=== PATIENT | female | born 1985 | race Caucasian/White ===

== ENCOUNTER → 2017-01-05 | Outpatient (CLI) | payer BC ==
[~2017-01-05] MED LIST: PRENTAB26 PO
[2017-01-05 16:49] LABS: URINE APPEARANCE CLEAR (CLEAR); URINE BILIRUBIN NEG (NEG); URINE COLOR YELLOW; URINE NITRITE NEG (NEG); URINE SPECIFIC GRAVITY 1.011 (1.000-1.030); UROBILINOGEN NEG (NEG)
[2017-01-05 16:51] LABS: MANUAL MICROSCOPIC REQUIRED? NO; REVIEW REQ? NO
== END | disposition home or self-care (01) ==
LOC: C.LABSPEC 16:22
PROVIDERS: ATTEND Obstetrics & Gynecology
DX: Z34.91 Encounter for supervision of normal pregnancy, unspecified, first trimester (principal)

== ENCOUNTER → 2017-02-27 | Outpatient (CLI) | payer BC ==
[2017-02-27 10:31] LABS: GTGD 50 Grams
== END | disposition home or self-care (01) ==
LOC: C.LAB1850 09:01
PROVIDERS: ATTEND Obstetrics & Gynecology
DX: Z34.92 Encounter for supervision of normal pregnancy, unspecified, second trimester (principal); Z3A.00 Weeks of gestation of pregnancy not specified

== ENCOUNTER → 2017-03-10 | Outpatient (CLI) | payer BC | END | disposition home or self-care (01) | LOC: C.LAB1850 08:18 | PROVIDERS: ATTEND Podiatrist Foot & Ankle Surgery | DX: Z34.92 Encounter for supervision of normal pregnancy, unspecified, second trimester (principal) ==

== ENCOUNTER → 2017-05-16 | Outpatient (CLI) | payer BC ==
[2017-05-16 09:43] LABS: HEMATOCRIT 35.8 % (37-47); HEMOGLOBIN 12.3 g/dL (12.0-16.0)
== END | disposition home or self-care (01) ==
LOC: C.LAB 07:07
PROVIDERS: ATTEND Obstetrics & Gynecology
DX: Z34.92 Encounter for supervision of normal pregnancy, unspecified, second trimester (principal)

== ENCOUNTER → 2017-06-10 | Outpatient (CLI) | payer BC | END | disposition home or self-care (01) | LOC: C.LABSPEC 16:34 | PROVIDERS: ATTEND Obstetrics & Gynecology | DX: N39.0 Urinary tract infection, site not specified (principal) ==

== ENCOUNTER → 2017-07-23 | Outpatient (CLI) | payer BC | END | disposition home or self-care (01) | LOC: C.LABSPEC 18:41 | PROVIDERS: ATTEND Obstetrics & Gynecology | DX: Z34.93 Encounter for supervision of normal pregnancy, unspecified, third trimester (principal); Z3A.00 Weeks of gestation of pregnancy not specified ==

== ENCOUNTER → 2017-10-12 | Outpatient (CLI) | payer BC | END | disposition home or self-care (01) | LOC: C.LAB1850 15:37 | PROVIDERS: ATTEND Obstetrics & Gynecology | DX: Z32.01 Encounter for pregnancy test, result positive (principal) ==

== ENCOUNTER 2021-05-21 13:17 | Inpatient (IN) ==
--- NOTE | 2021-05-21 14:11 | Emergency Department Note ---
Impression & Plan Cholelithiasis, Common bile duct dilatation, Elevated liver enzymes ED Provider Note CHIEF COMPLAINT: Upper abdominal pain, nausea and vomiting HISTORY OF PRESENTING ILLNESS: This is a 35-year-old female who presents to the emergency department by private vehicle with complaint of upper abdominal pain that started 2 days ago. She states that she ate dinner and shortly after she developed severe upper abdominal pain and vomiting. She states that she did not eat much yesterday because she felt nauseated all day, but when she tried to eat dinner last night the same thing happened and her pain got worse. She is having persistent epigastric and right upper quadrant pain that she describes as squeezing and pressure, radiates into her upper back, has been constant, and she currently rates the pain 7/10. She did not try any medications for her symptoms. She has had persistent nausea but has not had any further vomiting today. She denies any diarrhea, but notes that her stool was light-colored. She denies any urinary symptoms. She notes that she is currently on her menses and denies any concerns for . She denies chest pain, chest tightness, shortness of breath, palpitations, dizziness or syncope. She denies fevers or chills. She reports a history of appendectomy and denies any other abdominal surgeries. REVIEW OF SYSTEMS: A complete 10 point review of systems was reviewed with the patient with pertinent positives and negatives as per history of present ill ness. All else were negative. PAST MEDICAL HISTORY: Migraines, history of appendectomy and wisdom tooth extraction SOCIAL HISTORY: Lives at home with family, she denies tobacco use ALLERGIES: No known allergies PHYSICAL EXAM: CONSTITUTIONAL: Pleasant and cooperative. Nontoxic-appearing and in no acute distress. Mildly dehydrated, but otherwise well appearing and well nourished. HEENT: Normocephalic, atraumatic. Pharynx normal. Tacky mucous membranes. NECK: Supple, full active range of motion without discomfort. RESPIRATORY: Clear to auscultation bilaterally with no wheezing, crackles, rhonchi or stridor. Equal expansion bilaterally. CARDIOVASCULAR: Regular rate and rhythm with no murmurs, rubs or gallops. Normal peripheral perfusion. No edema. GASTROINTESTINAL: Tender to palpation in the epigastric and right upper quadrant abdomen with slight guarding in the right upper quadrant, no rebound tenderness. Abdomen is otherwise nontender, soft and nondistended. Obese abdomen. No palpable masses or HSM. Bowel sounds present in all quadrants. No CVA tenderness bilaterally. MUSCULOSKELETAL: Full range of motion of all joints without discomfort. INTEGUMENTARY: No rash or other significant dermatologic conditions noted. NEUROLOGIC: Alert and oriented X 4 with normal affect. Normal strength and sensation in all 4 extremities. Normal speech. Normal gait observed. ED COURSE AND MEDICAL DECISION MAKING: CC: Patient presenting with complaint of abdominal pain, nausea and vomiting DIFFERENTIAL DIAGNOSIS: Includes, but not limited to cholecystitis, cholelithiasis, pancreatitis, choledocholithiasis, gastritis, peptic ulcer disease, GERD, gastroenteritis, foodborne illness, among others. INTERPRETATION OF LABS: No leukocytosis, no anemia, normal platelets, no significant electrolyte abnormalities, normal renal function, significantly elevated T bili and liver enzymes with a normal lipase. Serum negative. UA negative for infection. MEDICATION RECONCILIATION: I attest that I have personally reviewed the patient's current medication list. INITIAL VITAL SIGNS REVIEW: I reviewed the patient's initial vital signs and interpret them as follows: T: Afebrile; BP: Hypertensive; HR: Within normal limits; RR: Within normal limits; Pulse Ox: Within normal limits on room air. MDM SUMMARY: Patient was initially evaluated in triage room 3 due to periods of high volume and long wait times. A history and physical exam was performed. Patient is alert and oriented, in no acute distress, resting calmly in the chair. She is tender to palpation in the epigastric and right upper quadrant on my exam, no acute abdomen. Initial orders were placed for labs, UA and urine , and right upper quadrant ultrasound to evaluate for gallbladder disease. Patient discussed with Dr. Harris, who agrees with my assessment, plan, and disposition. Labs and imaging reviewed, labs notable for significantly elevated liver enzymes and T bili, but a normal lipase. No leukocytosis. Ultrasound showed dilated gallbladder with multiple small gallstones, distended CBD up to 8 mm and positive sonographic Walton sign. There was no gallbladder wall thickening noted. I spoke on the phone with KORTNEY Perdomo with general surgery, who recommended admitting the patient to the hospitalist service and have her seen by GI to address the concern for biliary obstruction and they will most likely be involved after that for suspected surgery. She did request that we cover the patient with IV Zosyn prophylactically. I spoke on the phone with CRISTOFER Eastman with GI, who requested that we order an MRCP and they are happy to be involved with the patient as well. The patient will be kept n.p.o. after midnight for probable ERCP tomorrow. [facility] the patient for [facility]. A Covid test was ordered. Patient reassessed multiple times throughout ED stay, she has remained hemodynamically stable and afebrile and notes that her pain is improved with the morphine. The patient was updated on all results and plan for admission for evaluation by GI and surgery, all questions were answered to the best my ability and the patient was agreeable to this plan. The patient was stable at the time of admission. The chart was completed utilizing [employer] Speech voice recognition software. Grammatical errors, random word insertions, pronoun errors, and incomplete sentences are an occasional consequence of this system due to software limitations, ambient noise, and hardware issues. Any formal questions or concerns about the content, text, or information contained within the body of this dictation should be directly addressed to the nurse practitioner for cl arification. Past Med/Surg History Medical History Choledocholithiasis Common bile duct dilatation Elevated liver enzymes Migraine Morbid obesity with BMI of 40.0-44.9, adult Varicella Surgical History H/O oral surgery History of appendectomy S/P wisdom tooth extraction Family History Grandfather (Maternal) Congenital hip deformity Uncle Congenital hip deformity uncle Grandmother (Maternal) Breast cancer Father Hypertension Denies family history of Ovarian cancer Prostate cancer Myocardial infarction Colorectal cancer Social History (Updated 05/21/21 @ 18:24 by Lyle Mascorro) Smoking Status: Never smoker Second Hand Exposure: No; Hx Alcohol Use: No Hx Substance Use: No Preferred Language: Montserratian Communication Ability: Effective Visual Impairment: No Limitations Hearing Ability: Normal Frame Cleaner Required: No Beliefs That Will Affect Care: None marital status: Current Living Situation: Family 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 Other Information That Helps Us Care for You: No Feels Safe at Home: Yes Safety Concerns: Feels Safe At This Time Childhood Exposure to Second-Hand Smoke: No Dental Care, Regularly: No Physical Activity Frequency: 5-6 Times per Week Seatbelt Use: always Sunscreen Use: Yes Assistive Devices: None Allergies Allergies Allergy/AdvReac Type Severity Reaction Status Date / Time No Known Allergies Allergy Verified 05/21/21 15:41 Home Meds Home Medications Medication Instructions Recorded Confirmed multivitamin 1 tab PO DAILY 12/08/19 05/21/21 Previous Rx's Medication Instructions Recorded norgestimate 0.25 mg-ethinyl 1 tab PO DAILY #84 tab 03/14/21 estradiol 35 mcg tablet (Sprintec (28)) Results & Data (ED) Vital Signs Vital Signs - 24 hr 05/21/21 13:21 05/21/21 14:29 Temperature 37.0 C Temperature Source Oral Pulse Rate 69 Pulse Rate [Right Finger] 53 L Respiratory Rate 16 20 Blood Pressure 167/107 H Blood Pressure [Right Arm] 158/108 H Blood Pressure Mean 127 Blood Pressure Mean [Right Arm] 124 Pulse Oximetry 100 99 Oxygen Delivery Method Room Air Sepsis Recent Fever Within 48 Hours No Sepsis New/Unexplained Change in Mental Status N/A Sepsis Action Taken by Nursing No Action Required Laboratory Data Result diagrams: 05/23/21 05:29 05/23/21 05:29 Lab Results 05/21/21 05/21/21 05/21/21 Range/Units 14:10 14:10 14:10 WBC 5.35 (4.8-10.8) K/uL RBC 4.84 (4.2-5.4) M/uL Hgb 14.2 (12.0-16.0) g/dL Hct 42.0 (37-47) % MCV 86.8 (80-100) fL MCH 29.3 (25-34) pg MCHC 33.8 (32-36) g/dL RDW Std Deviation 43.3 (36.4-46.3) fL RDW Coeff of Tank 13.5 (11.5-14.5) % Plt Count 236 (130-400) K/uL MPV 11.7 H (7.4-10.4) fL Immature Gran % (Auto) 0.2 % Neut % (Auto) 70.4 % Lymph % (Auto) 20.0 % Lincoln % (Auto) 7.7 % Eos % (Auto) 1.3 % Baso % (Auto) 0.4 % Neut # (Auto) 3.77 (1.4-6.5) K/uL Lymph # (Auto) 1.07 L (1.2-3.4) K/uL Lincoln # (Auto) 0.41 (0.11-0.59) K/uL Eos # (Auto) 0.07 (0-0.5) K/uL Baso # (Auto) 0.02 (0-0.2) K/uL Immature Gran # (Auto) 0.01 (0.00-0.02) K/uL Sodium 140 (136-145) mmol/L Potassium 3.7 (3.5-5.1) mmol/L Chloride 106 (98-107) mmol/L Carbon Dioxide 26 (21-32) mmol/L Anion Gap 8 (3-11) BUN 7 (6-23) mg/dl Creatinine 0.59 L (0.6-1.2) mg/dl Est Cr Clr Drug Dosing 185.2 ml/min Est GFR ( Amer) 137.6 ml/min Est GFR (Non-Af Amer) 118.7 ml/min BUN/Creatinine Ratio 11.9 (10-20) Glucose 118 H (70-99(Fasting)) mg/dl Calcium 9.5 (8.5-10.1) mg/dl Total Bilirubin 3.4 H (0.2-1.0) mg/dl AST 533 H (13-39) U/L ALT 601 H (7-52) U/L Alkaline Phosphatase 181 H (34-104) U/L Total Protein 7.1 (6.0-8.3) gm/dl Albumin 4.4 (3.4-5.0) gm/dl Globulin 2.7 (2.5-4.0) gm/dl Albumin/Globulin Ratio 1.6 (0.9-2) Lipase 23 (11-82) U/L HCG, Qual Negative (Negative) Urine Color Urine Appearance (Clear) Urine pH (4.5-7.5) Ur Specific [place] (1.000-1.030) Urine Protein (Negative) Urine Glucose (UA) (Negative) Urine Ketones (Negative) Urine Blood (Negative) Urine Nitrite (Negative) Urine Bilirubin (Negative) Urine Urobilinogen (Negative) Ur Leukocyte Esterase (Negative) Urine WBC (Auto) (0-5) /hpf Urine RBC (Auto) (0-4) /hpf U Hyaline Cast (Auto) (0-5) /lpf U Epithel Cells (Auto) (0-5) /lpf Urine Bacteria (Auto) (Negative) SARS-CoV-2, RNA, NAAT (NEGATIVE) 05/21/21 05/21/21 Range/Units 14:25 17:25 WBC (4.8-10.8) K/uL RBC (4.2-5.4) M/uL Hgb (12.0-16.0) g/dL Hct (37-47) % MCV (80-100) fL MCH (25-34) pg MCHC (32-36) g/dL RDW Std Deviation (36.4-46.3) fL RDW Coeff of Tank (11.5-14.5) % Plt Count (130-400) K/uL MPV (7.4-10.4) fL Immature Gran % (Auto) % Neut % (Auto) % Lymph % (Auto) % Lincoln % (Auto) % Eos % (Auto) % Baso % (Auto) % Neut # (Auto) (1.4-6.5) K/uL Lymph # (Auto) (1.2-3.4) K/uL Lincoln # (Auto) (0.11-0.59) K/uL Eos # (Auto) (0-0.5) K/uL Baso # (Auto) (0-0.2) K/uL Immature Gran # (Auto) (0.00-0.02) K/uL Sodium (136-145) mmol/L Potassium (3.5-5.1) mmol/L Chloride (98-107) mmol/L Carbon Dioxide (21-32) mmol/L Anion Gap (3-11) BUN (6-23) mg/dl Creatinine (0.6-1.2) mg/dl Est Cr Clr Drug Dosing ml/min Est GFR ( Amer) ml/min Est GFR (Non-Af Amer) ml/min BUN/Creatinine Ratio (10-20) Glucose (70-99(Fasting)) mg/dl Calcium (8.5-10.1) mg/dl Total Bilirubin (0.2-1.0) mg/dl AST (13-39) U/L ALT (7-52) U/L Alkaline Phosphatase (34-104) U/L Total Protein (6.0-8.3) gm/dl Albumin (3.4-5.0) gm/dl Globulin (2.5-4.0) gm/dl Albumin/Globulin Ratio (0.9-2) Lipase (11-82) U/L HCG, Qual (Negative) Urine Color Dark Yellow Urine Appearance Clear (Clear) Urine pH 8.0 H (4.5-7.5) Ur Specific [place] 1.012 (1.000-1.030) Urine Protein Negative (Negative) Urine Glucose (UA) Negative (Negative) Urine Ketones Negative (Negative) Urine Blood 2+ H (Negative) Urine Nitrite Negative (Negative) Urine Bilirubin 2+ H (Negative) Urine Urobilinogen Negative (Negative) Ur Leukocyte Esterase Trace H (Negative) Urine WBC (Auto) 1-5 (0-5) /hpf Urine RBC (Auto) 10-30 H (0-4) /hpf U Hyaline Cast (Auto) 0 (0-5) /lpf U Epithel Cells (Auto) 5-10 H (0-5) /lpf Urine Bacteria (Auto) Negative (Negative) SARS-CoV-2, RNA, NAAT NEGATIVE (NEGATIVE) Administered Medications Hydrocodone Bitart/Acetaminophen (Hydrocodone/Acetamophen 5/325mg Tab) 2 tab PO Q4H PRN PRN Reason: Pain Stop: 06/06/21 17:40 Last Admin: 05/23/21 23:28 Dose: 2 tab Documented by: [id number] Admin: 05/23/21 19:31 Dose: 2 tab Documented by: [id number] Famotidine 20 mg/ Syringe 5 mls @ 2.5 mls/min IV BID MINESH Stop: 06/20/21 22:38 Last Admin: 05/23/21 20:27 Dose: 2.5 mls/min Documented by: [id number] Admin: 05/23/21 09:05 Dose: 2.5 mls/min Documented by: [id number] Admin: 05/22/21 20:27 Dose: 2.5 mls/min Documented by: [id number] Admin: 05/22/21 08:02 Dose: 2.5 mls/min Documented by: [id number] Admin: 05/21/21 23:28 Dose: 2.5 mls/min Documented by: [id number] Piperacillin Sod/Tazobactam (Sod 4.5 gm/ Dextrose) 120 mls @ 30 mls/hr IV Q8H MINESH; Protocol Stop: 06/01/21 00:00 Last Admin: 05/23/21 23:28 Dose: 30 mls/hr Documented by: [id number] Infusion: 05/23/21 23:28 Dose: 30 mls/hr Documented by: [id number] Admin: 05/23/21 19:31 Dose: 30 mls/hr Documented by: [id number] Infusion: 05/23/21 13:13 Dose: 0 mls/hr Documented by: [id number] Admin: 05/23/21 09:05 Dose: 30 mls/hr Documented by: [id number] Infusion: 05/23/21 03:42 Dose: 30 mls/hr Documented by: [id number] Admin: 05/22/21 23:29 Dose: 30 mls/hr Documented by: [id number] Infusion: 05/22/21 21:38 Dose: 30 mls/hr Documented by: [id number] Admin: 05/22/21 17:15 Dose: 30 mls/hr Documented by: [id number] Infusion: 05/22/21 12:08 Dose: 0 mls/hr Documented by: [id number] Admin: 05/22/21 08:08 Dose: 30 mls/hr Documented by: [id number] Infusion: 05/22/21 03:32 Dose: 30 mls/hr Documented by: [id number] Admin: 05/21/21 23:28 Dose: 30 mls/hr Documented by: [id number] Lactated Ringer's (Lr) 1,000 mls @ 80 mls/hr IV .[id number] MINESH Stop: 06/22/21 17:40 Last Admin: 05/23/21 18:03 Dose: 80 mls/hr Documented by: [id number] Morphine Sulfate (Morphine Sulfate 4 Mg/Ml 1 Ml Carp\Vial) 4 mg IV Q2H PRN PRN Reason: Pain Stop: 06/06/21 17:40 Last Admin: 05/23/21 17:53 Dose: 4 mg Documented by: [id number] Multivitamins (Multivitamin Tab) 1 tab PO DAILY MINESH Stop: 06/21/21 08:59 Last Admin: 05/23/21 10:36 Dose: Not Given Documented by: [id number] Admin: 05/22/21 07:45 Dose: Not Given Documented by: [id number] Ondansetron HCl (Ondansetron Inj 2 Mg/Ml 2 Ml Vial) 4 mg IV Q6H PRN PRN Reason: Nausea And Vomiting Stop: 06/20/21 22:38 Last Admin: 05/23/21 17:53 Dose: 4 mg Documented by: [id number] Admin: 05/23/21 11:31 Dose: 4 mg Documented by: [id number] Admin: 05/22/21 20:27 Dose: 4 mg Documented by: [id number] Admin: 05/22/21 07:57 Dose: 4 mg Documented by: [id number] Discontinued Medications Bupivacaine HCl (Bupivacaine 0.5 % 5 Mg/1 Ml Mpf 30ml Vial) Confirm Administered Dose 30 ml .ROUTE .STK-MED ONE Stop: 05/23/21 15:10 Last Admin: 05/23/21 16:13 Dose: 30 ml Documented by: [id number] Epinephrine HCl (Epinephrine Inj 1 Mg/Ml Amp) Confirm Administered Dose 1 mg .ROUTE .STK-MED ONE Stop: 05/23/21 15:10 Last Admin: 05/23/21 16:13 Dose: 0.15 mg Documented by: [id number] Fentanyl Citrate (Fentanyl Citrate 100 Mcg/2 Ml Vial) 50 mcg IV Q5M PRN PRN Reason: PACU Use Only-Pain Stop: 05/23/21 23:11 Last Admin: 05/23/21 16:48 Dose: 50 mcg Documented by: [id number] Admin: 05/23/21 16:42 Dose: 50 mcg Documented by: [id number] Sodium Chloride (Nss 1000ml) 1,000 mls @ 999 mls/hr IV .Q1H1M ONE Stop: 05/21/21 15:47 Last Infusion: 05/21/21 16:46 Dose: 0 mls/hr Documented by: [id number] Admin: 05/21/21 15:04 Dose: 999 mls/hr Documented by: [id number] Piperacillin Sod/Tazobactam Sod (Zosyn) 4.5 gm in 120 mls @ 240 mls/hr IV NOW ONE Stop: 05/21/21 16:58 Last Infusion: 05/21/21 18:05 Dose: 0 mls/hr Documented by: [id number] Admin: 05/21/21 16:54 Dose: 240 mls/hr Documented by: [id number] Potassium Chloride/Dextrose/Sod Cl (D5nss + 20meq Kcl) 20 meq in 1,000 mls @ 150 mls/hr IV .Q6H40M [facility]; Protocol Stop: 06/20/21 22:59 Last Admin: 05/23/21 20:18 Dose: Not Given Documented by: [id number] Admin: 05/23/21 20:17 Dose: Not Given Documented by: [id number] Infusion: 05/23/21 18:29 Dose: 0 mls/hr Documented by: [id number] Admin: 05/23/21 08:15 Dose: 150 mls/hr Documented by: [id number] Infusion: 05/23/21 06:10 Dose: 150 mls/hr Documented by: [id number] Admin: 05/22/21 23:29 Dose: 150 mls/hr Documented by: [id number] Infusion: 05/22/21 23:29 Dose: 150 mls/hr Documented by: [id number] Admin: 05/22/21 18:07 Dose: 150 mls/hr Documented by: [id number] Infusion: 05/22/21 18:07 Dose: 150 mls/hr Documented by: [id number] Infusion: 05/22/21 17:09 Dose: 150 mls/hr Documented by: [id number] Infusion: 05/22/21 13:57 Dose: 0 mls/hr Documented by: [id number] Admin: 05/22/21 08:27 Dose: 150 mls/hr Documented by: [id number] Infusion: 05/22/21 06:28 Dose: 150 mls/hr Documented by: [id number] Admin: 05/21/21 23:28 Dose: 150 mls/hr Documented by: [id number] Prochlorperazine 5 mg/ Syringe 5 mls @ 5 mls/min IV ONE ONE Stop: 05/22/21 22:46 Last Admin: 05/22/21 23:29 Dose: 5 mls/min Documented by: [id number] Indomethacin (Indomethacin 50 Mg Supp) Confirm Administered Dose 100 mg ND .STK- MED ONE Stop: 05/22/21 14:54 Last Admin: 05/22/21 17:04 Dose: Not Given Documented by: [id number] Morphine Sulfate (Morphine Sulfate 4 Mg/Ml 1 Ml Carp\Vial) 4 mg IV NOW STA Stop: 05/21/21 14:48 Last Admin: 05/21/21 14:56 Dose: 4 mg Documented by: [id number] Morphine Sulfate (Morphine Sulfate 4 Mg/Ml 1 Ml Carp\Vial) 4 mg IV NOW STA Stop: 05/21/21 16:41 Last Admin: 05/21/21 16:54 Dose: 4 mg Documented by: [id number] Morphine Sulfate (Morphine Sulfate 2 Mg/Ml Carp) 2 mg IV Q3H PRN PRN Reason: Pain Stop: 06/04/21 22:38 Last Admin: 05/23/21 10:28 Dose: 2 mg Documented by: [id number] Admin: 05/22/21 22:12 Dose: 2 mg Documented by: [id number] Admin: 05/22/21 10:58 Dose: 2 mg Documented by: [id number] Ondansetron HCl (Ondansetron Inj 2 Mg/Ml 2 Ml Vial) 4 mg IV NOW STA Stop: 05/21/21 14:48 Last Admin: 05/21/21 14:56 Dose: 4 mg Documented by: [id number] Imaging Data Radiologist's Impression: Gallbladder Ultrasound 05/21/21 13:58 ABDOMINAL ULTRASOUND, RIGHT UPPER QUADRANT HISTORY: epigastric and RUQ pain, n/v, after eating. COMPARISON: Chest CTA 02/09/2019. FINDINGS: Pancreas: The pancreatic tail is obscured by overlying bowel gas. The remaining portions of the pancreas are within normal limits. Liver: No hepatic masses. There is mild intrahepatic bile duct dilatation. Gallbladder: Multiple small stones seen within the gallbladder. The gallbladder is mildly distended. No gallbladder wall thickening or pericholecystic fluid. Possible sonographic Walton's sign. CBD: The common bile duct is distended measuring up to 8 mm. Right kidney: No hydronephrosis. IMPRESSION: 1. Distended gallbladder containing multiple small stones. No gallbladder wall thickening. However, there is a possible sonographic Walton sign. Therefore, clinical correlation recommended to assess for acute cholecystitis. 2. Mild intra and extrahepatic bile duct dilatation. ACT 112: Negative or not required by law. Electronically signed by: Corona Costello M.D. 05/21/2021 4:15 PM Discharge Plan Visit Data Chief Complaint: Abdominal Pain Stated Complaint: ABD PAIN, VOMIT, DR REF ED Provider: Archana Harris ED Midlevel Provider: Leesa Burk Discharge Problem: Cholelithiasis, Common bile duct dilatation, Elevated liver enzymes Patient Disposition: Admitted As Inpatient Condition: Good Discharge Instructions Interventions: ED Discharge Assessment Last Done: 05/21/21 19:37 Discharge Problem: Cholelithiasis Qualifiers: Cholelithiasis location: gallbladder Cholecystitis presence: without cholecystitis Biliary obstruction: with biliary obstruction Qualified Code(s): K80.21 - Calculus of gallbladder without cholecystitis with obstruction
[2021-05-21 14:22] LABS: Basophils # (auto) 0.02 K/uL (0-0.2); Basophils % (auto) 0.4 %; Eosinophils # (auto) 0.07 K/uL (0-0.5); Eosinophils % (auto) 1.3 %; Hemoglobin 14.2 g/dL (12.0-16.0); Immature Granulocytes # (auto) 0.01 K/uL (0.00-0.02); Immature Granulocytes % (auto) 0.2 %; Lymphocytes # (auto) 1.07 K/uL (1.2-3.4); Mean Corpuscular Hemoglobin 29.3 pg (25-34); Mean Corpuscular Hgb Conc 33.8 g/dL (32-36); Mean Corpuscular Volume 86.8 fL (80-100); Mean Platelet Volume 11.7 fL (7.4-10.4); Monocytes # (auto) 0.41 K/uL (0.11-0.59); Monocytes % (auto) 7.7 %; Neutrophils # (auto) 3.77 K/uL (1.4-6.5); Neutrophils % (auto) 70.4 %; Platelet Count 236 K/uL (130-400); RDW Coefficient of Variation 13.5 % (11.5-14.5); RDW Standard Deviation 43.3 fL (36.4-46.3); Red Blood Count 4.84 M/uL (4.2-5.4); White Blood Count 5.35 K/uL (4.8-10.8)
[2021-05-21 14:47] LABS: Pregnancy Test, Serum Negative (Negative)
[2021-05-21] MEDS ORDERED: ONDANSETRON INJ 2 MG/ML 2 ML VIAL IV STA (14:47)
[2021-05-21] MEDS ORDERED: SODIUM CHLORIDE 0.9% 1000ML 1,000 ML IV ONE (14:47)
[2021-05-21] MEDS ORDERED: MoRPHine SULFATE 4 MG/ML 1 ML CARP\\VIAL IV STA ×2 (14:47→16:40)
[2021-05-21 14:50] LABS: BUN Creatinine Ratio 11.9 (10-20); Calcium 9.5 mg/dl (8.5-10.1); Creatinine Clr Calc Pharmacy 185.2 ml/min; Est GFR (African American) 137.6 ml/min; Est GFR (Non-African American) 118.7 ml/min; Potassium 3.7 mmol/L (3.5-5.1)
[2021-05-21 14:51] LABS: Albumin Globulin Ratio 1.6 (0.9-2); Albumin Level 4.4 gm/dl (3.4-5.0); Bilirubin,Total 3.4 mg/dl (0.2-1.0); Globulin 2.7 gm/dl (2.5-4.0); Total Protein 7.1 gm/dl (6.0-8.3)
[2021-05-21 14:55] LABS: Appearance Urine Clear (Clear); Bacteria Urine Automated Negative (Negative); Blood Urine 2+ (Negative); Cast Urine Automated 0 /lpf (0-5); Color Urine Dark Yellow; Glucose Urine UA Negative (Negative); Ketones Urine Negative (Negative); Leukocyte Esterase Urine Trace (Negative); Nitrite Urine Negative (Negative); Protein Urine Negative (Negative); Specific Gravity Urine 1.012 (1.000-1.030); Urobilinogen Urine Negative (Negative)
[2021-05-21 14:58] LABS: Bilirubin Urine 2+ (Negative)
--- NOTE | 2021-05-21 16:17 | Ultrasound Report ---
ABDOMINAL ULTRASOUND, RIGHT UPPER QUADRANT HISTORY: epigastric and RUQ pain, n/v, after eating. COMPARISON: Chest CTA 02/09/2019. FINDINGS: Pancreas: The pancreatic tail is obscured by overlying bowel gas. The remaining portions of the pancr eas are within normal limits. Liver: No hepatic masses. There is mild intrahepatic bile duct dilatation. Gallbladder: Multiple small stones seen within the gallbladder. The gallbladder is mildly distended. No gallbladder wall thickening or pericholecystic fluid. Possible sonographic Walton's sign. CBD: The common bile duct is distended measuring up to 8 mm. Right kidney: No hydronephrosis. IMPRESSION: 1. Distended gallbladder containing multiple small stones. No gallbladder wall thickening. However, t here is a possible sonographic Walton sign. Therefore, clinical correlation recommended to assess for acute cholecystitis. 2. Mild intra and extrahepatic bile duct dilatation. ACT 112: Negative or not required by law. Electronically signed by: Corona Costello M.D. 05/21/2021 4:15 PM
[2021-05-21] MEDS ORDERED: PIPERACILL/TAZOBAC CONSULT ACTIVE PRN ×2 (16:29→22:39)
[2021-05-21] MEDS ORDERED: PIPERACILLIN/TAZOBACTAM 4.5 GM/120 ML BAG IV ONE (16:29)
--- NOTE | 2021-05-21 16:44 | Surgery Consultation ---
Date of Consultation May 21, 2021 Assessment & Plan (1) Cholelithiasis: elevated LFTs with bile duct dilation, CBD 8 mm repeat labs in AM but high suspicion for choledocholithiasis await GI eval eventual lap sanjeev History of Present Illness History of Present Illness 35 y/o female with 3 days epigastric pain with N/V. No previous history of pain, nausea or bloating. Has not been able to keep much down the past few days. Open appendectomy 15 years ago. Allergies Allergy/AdvReac Type Severity Reaction Status Date / Time No Known Allergies Allergy Verified 05/21/21 15:41 Home Medications Medication Instructions Recorded Confirmed Type multivitamin 1 tab PO DAILY 12/08/19 05/21/21 History norgestimate 0.25 mg-ethinyl 1 tab PO DAILY #84 tab 03/14/21 05/21/21 Rx estradiol 35 mcg tablet (Sprintec (28)) Patient History Medical History 41 weeks gestation of Migraine Vaginal discharge during Varicella Surgical History H/O oral surgery History of appendectomy S/P wisdom tooth extraction Family History Grandfather (Maternal) Congenital hip deformity Uncle Congenital hip deformity uncle Grandmother (Maternal) Breast cancer Father Hypertension Denies family history of Ovarian cancer Prostate cancer Myocardial infarction Colorectal cancer Social History Smoking Status: Never smoker Second Hand Exposure: No; Hx Alcohol Use: No Hx Substance Use: No Preferred Language: Swedish Communication Ability: Effective Visual Impairment: No Limitations Hearing Ability: Normal marital status: Current Living Situation: Spouse current occupational status: employed current occupation: teacher Feels Safe at Home: Yes Childhood Exposure to Second-Hand Smoke: No Dental Care, Regularly: No Physical Activity Frequency: 5-6 Times per Week Seatbelt Use: always Sunscreen Use: Yes Review of Systems Constitutional: no fever and no chills Gastrointestinal: + abdominal pain, + nausea and + vomiting; no bloating Physical Exam Constitutional: WD/WN, vitals as above Respiratory: normal respiratory effort, lungs clear to auscultation Cardiovascular: RRR, no murmur, no edema Gastrointestinal (Abdomen): Inspection/Auscultation: abdomen not distended Percussion/Palpation: + abdomen tender (mild epigastric, recently medicated) and abdomen soft Results & Data ([facility]) Vital Signs (Past 12 Hours) Vital Signs Temp Pulse Pulse Resp BP BP Pulse Ox 05/21/21 14:29 53 L 20 158/108 H 99 05/21/21 13:21 37.0 C 69 16 167/107 H 100 PG Care Time/CCT Total # of Minutes Spent Total Time Spent with Patient: Total time spent is greater than 50% in coordination of care (as documented) at patient's floor/unit and/or counseling patient: Coding Level of Care Code 04553 Inpt Consult Level 3 Diagnoses Cholelithiasis K80.20
--- NOTE | 2021-05-21 16:57 | Communication Note ---
Date of Service: May 21, 2021 GI was contacted regarding current imaging and elevated LFTs. Recommend covid-19 testing, MRCP and NPO after midnight. Will tentatively list ERCP w/ Dr. Ab keith on Thursday given concern for CBD stone.
--- NOTE | 2021-05-21 17:44 | History & Physical Report ---
Date of Service May 21, 2021 Assessment & Plan (1) Cholelithiasis: Plan: Multiple episodes of biliary colic over the last several days with severe, protracted pain over the last 12-24 hours. Her ongoing tenderness on exam is concerning for early acute cholecystitis despite the lack of evidence of such on RUQ u/s. Further, her LFTs are in an obstructive pattern concerning for choledocholithiasis. Plan - * MRCP urgently * probable ERCP tomorrow * NPO - may have ice chips/sips until [place] tonight then nothing other than medications * appreciate gen surgery consultation & GI consultation * cover for acute cholecystitis with zosyn IV; this will also cover the bile du ct and for any early, brewing cholangitis * copious IV fluids * pain meds * anti-emetics * GI prophy with IV pepcid * repeat cbc, cmp in am likely lap sanjeev later in her stay (2) Elevated liver enzymes: Plan: see above #1 repeat LFTs am (3) Common bile duct dilatation: Plan: as seen on RUQ u/s -- 8mm LFTs are in an obstructive pattern - concerning for choledocholithiasis MRCP tonight likely ERCP tomorrow by [facility] repeat labs am (4) Biliary colic: Plan: see above (5) Morbid obesity with BMI of 40.0-44.9, adult: Plan: BMI 41.7 (6) DVT prophylaxis: Plan: hold on chemical means given the need for ERCP tomorrow History of Present Illness Chief Complaint: abdominal pain, nausea, emesis Primary Care Provider: Demetrius Block, DO Lauren 35yo female presents with multiple episodes of epigastric pain with radiation to her upper back beginning Thursday after eating chicken salad sandwich. The pain lasted all day Thursday into Thursday night. She did have emesis then. On Thursday am she awoke feeling improved, but then developed pain in her upper abdomen again after eating dinner that night, and also had emesis. The pain was quite severe last pm and lasted most of the night until she finally fell asleep about 2am. This am upon awakening she felt poorly with fatigue, nausea, cold chills. She tried to go to work but felt too ill. At lunch-time she attempted to eat 3 Chicken McNuggets from [employer] which led to severe abdominal pain. This prompted a visit to the ER. By the time of my assessment she was resting comfortably. Allergies Allergy/AdvReac Type Severity Reaction Status Date / Time No Known Allergies Allergy Verified 05/21/21 15:41 Home Medications Medication Instructions Recorded Confirmed Type multivitamin 1 tab PO DAILY 12/08/19 05/21/21 History norgestimate 0.25 mg-ethinyl 1 tab PO DAILY #84 tab 03/14/21 05/21/21 Rx estradiol 35 mcg tablet (Sprintec (28)) Past Med/Surg History Medical History 41 weeks gestation of Migraine Vaginal discharge during Varicella Surgical History H/O oral surgery History of appendectomy S/P wisdom tooth extraction Family History Grandfather (Maternal) Congenital hip deformity Uncle Congenital hip deformity uncle Grandmother (Maternal) Breast cancer Father Hypertension Denies family history of Ovarian cancer Prostate cancer Myocardial infarction Colorectal cancer Social History (Updated 05/21/21 @ 18:24 by Lyle Mascorro) Smoking Status: Never smoker Second Hand Exposure: No; Hx Alcohol Use: No Hx Substance Use: No Preferred Language: Faroese Communication Ability: Effective Visual Impairment: No Limitations Hearing Ability: Normal Armature Bander Required: No Beliefs That Will Affect Care: None marital status: Current Living Situation: Family 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 Other Information That Helps Us Care for You: No Feels Safe at Home: Yes Safety Concerns: Feels Safe At This Time Childhood Exposure to Second-Hand Smoke: No Dental Care, Regularly: No Physical Activity Frequency: 5-6 Times per Week Seatbelt Use: always Sunscreen Use: Yes Assistive Devices: None Review of Systems Review of Systems: gen - no fever but has had chills; loss of appetite x 48 hours; no recent weight changes eyes - no visual change HENT - no dysphagia, no sore throat neck - no pain CV - no chest pain pulm - difficult to take a deep breath because of pain in the high abdomen but otherwise no dyspnea, no cough GI - severe abd pain, nausea, emesis, and pale-colored stools; latter over the last 24 hours; no blood per rectum - no dysuria musculo - back pain associated with the abd pain skin - no jaundice or rash endo - no diabetes lymph - no recent lymphadenopathy neuro - no focal motor weakness or headache Physical Exam Physical Exam: gen - NAD, obese, pleasant eyes - nonicteric, PERRL HENT - MM very dry neck - supple, no JVD, ?thyroid nodule vs lymph node just to left of midline anterior neck heart - RRR, s1 s2, no murmur lungs - CTA b/l abd - very tender RUQ and a little over high epigastric region, BS+, no HSM, soft, no peritoneal signs ext - no edema, pulses 2+ b/l skin - no rash, no jaundice neuro - strength 5/5 x 4 exts psych - a/o x 3 Results & Data Results & Data ([facility]) Vital Signs (Past 12 Hours) Vital Signs Temp Pulse Pulse Resp BP BP Pulse Ox 05/21/21 14:29 53 L 20 158/108 H 99 05/21/21 13:21 37.0 C 69 16 167/107 H 100 Laboratory Results Laboratory Results - last 24 hr 05/21/21 05/21/21 05/21/21 14:10 14:10 14:10 WBC 5.35 RBC 4.84 Hgb 14.2 Hct 42.0 MCV 86.8 MCH 29.3 MCHC 33.8 RDW Std Deviation 43.3 RDW Coeff of Tank 13.5 Plt Count 236 MPV 11.7 H Immature Gran % (Auto) 0.2 Neut % (Auto) 70.4 Lymph % (Auto) 20.0 [place] % (Auto) 7.7 Eos % (Auto) 1.3 Baso % (Auto) 0.4 Neut # (Auto) 3.77 Lymph # (Auto) 1.07 L [place] # (Auto) 0.41 Eos # (Auto) 0.07 Baso # (Auto) 0.02 Immature Gran # (Auto) 0.01 Sodium 140 Potassium 3.7 Chloride 106 Carbon Dioxide 26 Anion Gap 8 BUN 7 Creatinine 0.59 L Est Cr Clr Drug Dosing 185.2 Est GFR ( Amer) 137.6 Est GFR (Non-Af Amer) 118.7 BUN/Creatinine Ratio 11.9 Glucose 118 H Calcium 9.5 Total Bilirubin 3.4 H AST 533 H ALT 601 H Alkaline Phosphatase 181 H Total Protein 7.1 Albumin 4.4 Globulin 2.7 Albumin/Globulin Ratio 1.6 Lipase 23 HCG, Qual Negative Urine Color Urine Appearance Urine pH Ur Specific [place] Urine Protein Urine Glucose (UA) Urine Ketones Urine Blood Urine Nitrite Urine Bilirubin Urine Urobilinogen Ur Leukocyte Esterase Urine WBC (Auto) Urine RBC (Auto) U Hyaline Cast (Auto) U Epithel Cells (Auto) Urine Bacteria (Auto) SARS-CoV-2, RNA, NAAT 05/21/21 05/21/21 14:25 17:25 WBC RBC Hgb Hct MCV MCH MCHC RDW Std Deviation RDW Coeff of Tank Plt Count MPV Immature Gran % (Auto) Neut % (Auto) Lymph % (Auto) [place] % (Auto) Eos % (Auto) Baso % (Auto) Neut # (Auto) Lymph # (Auto) [place] # (Auto) Eos # (Auto) Baso # (Auto) Immature Gran # (Auto) Sodium Potassium Chloride Carbon Dioxide Anion Gap BUN Creatinine Est Cr Clr Drug Dosing Est GFR ( Amer) Est GFR (Non-Af Amer) BUN/Creatinine Ratio Glucose Calcium Total Bilirubin AST ALT Alkaline Phosphatase Total Protein Albumin Globulin Albumin/Globulin Ratio Lipase HCG, Qual Urine Color Dark Yellow Urine Appearance Clear Urine pH 8.0 H Ur Specific [place] 1.012 Urine Protein Negative Urine Glucose (UA) Negative Urine Ketones Negative Urine Blood 2+ H Urine Nitrite Negative Urine Bilirubin 2+ H Urine Urobilinogen Negative Ur Leukocyte Esterase Trace H Urine WBC (Auto) 1-5 Urine RBC (Auto) 10-30 H U Hyaline Cast (Auto) 0 U Epithel Cells (Auto) 5-10 H Urine Bacteria (Auto) Negative SARS-CoV-2, RNA, NAAT NEGATIVE Diagnostic Findings Gallbladder Ultrasound 05/21/21 13:58 ABDOMINAL ULTRASOUND, RIGHT UPPER QUADRANT HISTORY: epigastric and RUQ pain, n/v, after eating. COMPARISON: Chest CTA 02/09/2019. FINDINGS: Pancreas: The pancreatic tail is obscured by overlying bowel gas. The remaining portions of the pancreas are within normal limits. Liver: No hepatic masses. There is mild intrahepatic bile duct dilatation. Gallbladder: Multiple small stones seen within the gallbladder. The gallbladder is mildly distended. No gallbladder wall thickening or pericholecystic fluid. Possible sonographic Walton's sign. CBD: The common bile duct is distended measuring up to 8 mm. Right kidney: No hydronephrosis. IMPRESSION: 1. Distended gallbladder containing multiple small stones. No gallbladder wall thickening. However, there is a possible sonographic Walton sign. Therefore, clinical correlation recommended to assess for acute cholecystitis. 2. Mild intra and extrahepatic bile duct dilatation. ACT 112: Negative or not required by law. Electronically signed by: Corona Costello M.D. 05/21/2021 4:15 PM PG Care Time/CCT Total # of Minutes Spent Total Time Spent with Patient: Total time spent is greater than 50% in coordination of care (as documented) at patient's floor/unit and/or counseling patient: Coding Level of Care Code 17849 Initial Inpt Care Lvl 2 Diagnoses Cholelithiasis K80.21 Biliary obstruction: with biliary obstruction Cholecystitis presence: without cholecystitis Cholelithiasis location: gallbladder Elevated liver enzymes R74.8 Common bile duct dilatation K83.8 Biliary colic K80.50 Morbid obesity with BMI of 40.0-44.9, adult E66.01; Z68.41 DVT prophylaxis Z29.9 (1) Cholelithiasis Biliary obstruction: with biliary obstruction Cholecystitis presence: without cholecystitis Cholelithiasis location: gallbladder Qualified Code(s): K80.21 - Calculus of gallbladder without cholecystitis with obstruction
[2021-05-21] MEDS ORDERED: AMPICILLIN/SULBACTAM SOD 3,000 MG in 0.9 % SODIUM CHLORIDE 100 ML IV STA (18:13)
[2021-05-21] MEDS: PIPERACILLIN/TAZOBACTAM 4.5 GM in DEXTROSE 5% 100 ML IV SCH (23:28)
[2021-05-21] MEDS: D5NSS + 20MEQ KCL 20 MEQ/1,000 ML BAG IV SCH (23:28)
[2021-05-21] MEDS: FAMOTIDINE 20 MG in SYRINGE 3 ML IV SCH (23:28)
[2021-05-22 07:19] LABS: Basophils # (auto) 0.03 K/uL (0-0.2); Basophils % (auto) 0.8 %; Eosinophils % (auto) 2.6 %; Hematocrit (blood only) 37.8 % (37-47); Hemoglobin 12.9 g/dL (12.0-16.0); Lymphocytes # (auto) 0.99 K/uL (1.2-3.4); Lymphocytes % (auto) 25.4 %; Mean Corpuscular Hemoglobin 29.8 pg (25-34); Mean Corpuscular Hgb Conc 34.1 g/dL (32-36); Mean Corpuscular Volume 87.3 fL (80-100); Mean Platelet Volume 11.6 fL (7.4-10.4); Monocytes % (auto) 10.3 %; Neutrophils # (auto) 2.38 K/uL (1.4-6.5); Neutrophils % (auto) 60.9 %; Platelet Count 205 K/uL (130-400); RDW Coefficient of Variation 13.9 % (11.5-14.5); RDW Standard Deviation 44.9 fL (36.4-46.3); Red Blood Count 4.33 M/uL (4.2-5.4)
[2021-05-22 07:40] LABS: Albumin Globulin Ratio 1.7 (0.9-2); Albumin Level 3.8 gm/dl (3.4-5.0); BUN Creatinine Ratio 10.1 (10-20); Bilirubin,Total 4.3 mg/dl (0.2-1.0); Calcium 8.8 mg/dl (8.5-10.1); Creatinine Clr Calc Pharmacy 158.3 ml/min; Est GFR (African American) 130.7 ml/min; Est GFR (Non-African American) 112.8 ml/min; Globulin 2.3 gm/dl (2.5-4.0); Potassium 3.7 mmol/L (3.5-5.1); Total Protein 6.1 gm/dl (6.0-8.3)
[2021-05-22] MEDS: MULTIVITAMIN TAB PO SCH (07:45)
[2021-05-22] MEDS: ONDANSETRON INJ 2 MG/ML 2 ML VIAL IV PRN ×2 (07:57→20:27)
[2021-05-22] MEDS: FAMOTIDINE 20 MG in SYRINGE 3 ML IV SCH ×2 (08:02→20:27)
[2021-05-22] MEDS: PIPERACILLIN/TAZOBACTAM 4.5 GM in DEXTROSE 5% 100 ML IV SCH ×3 (08:08→23:29)
[2021-05-22] MEDS: D5NSS + 20MEQ KCL 20 MEQ/1,000 ML BAG IV SCH ×3 (08:27→23:29)
--- NOTE | 2021-05-22 08:52 | Magnetic Resonance Report ---
MRCP CLINICAL HISTORY: Cholelithiasis. Elevated hepatic transaminases. COMPARISON STUDY: Abdominal ultrasound dated 05/21/2021. Chest CT dated 02/09/2019. TECHNIQUE: Abdominal MRCP is performed utilizing various T2-weighted sequences in the axial and coron al planes. IV contrast was not administered for this examination. 3-D reformats are created and asses sed. FINDINGS: There are numerous gallstones identified, including a stone in the gallbladder neck. There is no MRI evidence of acute cholecystitis. The common bile duct is mildly dilated measuring 7.5 mm in diameter. There are intraluminal filling defects in the mid to distal common bile duct which likely represent choledocholithiasis. There is no intrahepatic biliary ductal dilatation. The pancreatic fuad t is normal in caliber. The liver is mildly enlarged measuring 18.4 cm in length. Steatosis was shown on a prior chest CT. Th e unenhanced liver is otherwise grossly unremarkable. The unenhanced spleen, pancreas, adrenal glands , and kidneys are grossly normal. There is no abdominal ascites. The abdominal aorta is normal in odilon iber. No bowel obstruction is seen. There is no pleural effusion. IMPRESSION: 1. Cholelithiasis without MRI evidence of acute cholecystitis. 2. There is mild dilatation of the common bile duct with evidence of choledocholithiasis. 3. Hepatomegaly and hepatic steatosis. Dictated: 05/22/2021 8:01 AM Transcribed: 05/22/2021 8:25 AM Ary [id number] [email or web address] Electronically signed by: Josué Quesada M.D. 05/22/2021 8:51 AM
--- NOTE | 2021-05-22 09:14 | Gastrointestinal Consultation ---
Date of Consultation May 22, 2021 Assessment & Plan (1) Cholelithiasis: 35 yearold female admitted with ruq pain, nausea, vomiting, elevated transaminases, gallstones andis mild dilatation of the common bile duct with evidence of choledocholithiasis. NPO ERCP today CCY per general surgery Supervising Physician Co-Signing Physician Notes Patient laying in bed in no acute distress, slightly red cheeks, abd obese but soft Denies chance of labs reviewed Nausea a little better but she hasn't been eating and states eating makes it worse Planning for ERCP later this afternoon. History of Present Illness Reason for Consultation: gallstones Requesting Physician: Ludwin Attending Physician: Lyle Mascorro History of Present Illness 35 year old female admitted w/ pain elevated lfts. Pt was seen and evaluated, chart reviewed. She notes symptoms started after dinner Thursday. Right upper quad pain, associated with nausea/vomiting. Pain lasted 1-2 hours. She notes o lyndon the past 48 hours she has had persistent symptoms with PO intake. Has had chills. No fevers. Moving bowels well - has had light colored stools. MRCP: Cholelithiasis without MRI evidence of acute cholecystitis.There is mild dilatation of the common bile duct with evidence of choledocholithiasis. Hepatomegaly and hepatic steatosis. ABD US: Distended gallbladder containing multiple small stones. No gallbladder wall thickening. However, there is a possible sonographic Walton sign. Therefore, clinical correlation recommended to assess for acute cholecystitis. Mild intra and extrahepatic bile duct dilatation. Allergies Allergy/AdvReac Type Severity Reaction Status Date / Time No Known Allergies Allergy Verified 05/21/21 15:41 Home Medications Medication Instructions Recorded Confirmed Type multivitamin 1 tab PO DAILY 12/08/19 05/21/21 History norgestimate 0.25 mg-ethinyl 1 tab PO DAILY #84 tab 03/14/21 05/21/21 Rx estradiol 35 mcg tablet (Sprintec (28)) Patient History Medical History 41 weeks gestation of Migraine Vaginal discharge during Varicella Surgical History H/O oral surgery History of appendectomy S/P wisdom tooth extraction Family History Grandfather (Maternal) Congenital hip deformity Uncle Congenital hip deformity uncle Grandmother (Maternal) Breast cancer Father Hypertension Denies family history of Ovarian cancer Prostate cancer Myocardial infarction Colorectal cancer Social History (Updated 05/21/21 @ 18:24 by Lyle Mascorro) Smoking Status: Never smoker Second Hand Exposure: No; Hx Alcohol Use: No Hx Substance Use: No Preferred Language: Upper Sorbian Communication Ability: Effective Visual Impairment: No Limitations Hearing Ability: Normal Cytogenetics Technologist Required: No Beliefs That Will Affect Care: None marital status: Current Living Situation: Family 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 Other Information That Helps Us Care for You: No Feels Safe at Home: Yes Safety Concerns: Feels Safe At This Time Childhood Exposure to Second-Hand Smoke: No Dental Care, Regularly: No Physical Activity Frequency: 5-6 Times per Week Seatbelt Use: always Sunscreen Use: Yes Assistive Devices: None Review of Systems Review of Systems: All systems reviewed & are unremarkable except as noted in HPI & below Physical Exam Constitutional: WD/WN, vitals as above Neck: trachea midline, no thyromegaly Respiratory: normal respiratory effort, lungs clear to auscultation Gastrointestinal (Abdomen): normal bowel sounds, soft, nontender, no hepatosplenomegaly Skin: no rashes, warm and dry Results & Data ([facility]) Vital Signs (Past 12 Hours) Vital Signs Temp Pulse Resp BP Pulse Ox 05/22/21 07:44 37 C 47 L 16 118/80 99 Laboratory Results 05/22/21 05/22/21 05/21/21 Range/Units 06:47 06:47 17:25 WBC 3.90 L (4.8-10.8) K/uL RBC 4.33 (4.2-5.4) M/uL Hgb 12.9 (12.0-16.0) g/dL Hct 37.8 (37-47) % MCV 87.3 (80-100) fL MCH 29.8 (25-34) pg MCHC 34.1 (32-36) g/dL RDW Std Deviation 44.9 (36.4-46.3) fL RDW Coeff of Tank 13.9 (11.5-14.5) % Plt Count 205 (130-400) K/uL MPV 11.6 H (7.4-10.4) fL Immature Gran % (Auto) 0.0 % Neut % (Auto) 60.9 % Lymph % (Auto) 25.4 % [place] % (Auto) 10.3 % Eos % (Auto) 2.6 % Baso % (Auto) 0.8 % Neut # (Auto) 2.38 (1.4-6.5) K/uL Lymph # (Auto) 0.99 L (1.2-3.4) K/uL [place] # (Auto) 0.40 (0.11-0.59) K/uL Eos # (Auto) 0.10 (0-0.5) K/uL Baso # (Auto) 0.03 (0-0.2) K/uL Immature Gran # (Auto) 0.00 (0.00-0.02) K/uL Sodium 141 (136-145) mmol/L Potassium 3.7 (3.5-5.1) mmol/L Chloride 110 H (98-107) mmol/L Carbon Dioxide 27 (21-32) mmol/L Anion Gap 4 (3-11) BUN 7 (6-23) mg/dl Creatinine 0.69 (0.6-1.2) mg/dl Est Cr Clr Drug Dosing 158.3 ml/min Est GFR ( Amer) 130.7 ml/min Est GFR (Non-Af Amer) 112.8 ml/min BUN/Creatinine Ratio 10.1 (10-20) Glucose 112 H (70-99(Fasting)) mg/dl Calcium 8.8 (8.5-10.1) mg/dl Total Bilirubin 4.3 H (0.2-1.0) mg/dl AST 301 H (13-39) U/L ALT 493 H (7-52) U/L Alkaline Phosphatase 181 H (34-104) U/L Total Protein 6.1 (6.0-8.3) gm/dl Albumin 3.8 (3.4-5.0) gm/dl Globulin 2.3 L (2.5-4.0) gm/dl Albumin/Globulin Ratio 1.7 (0.9-2) Lipase (11-82) U/L HCG, Qual (Negative) Urine Color Urine Appearance (Clear) Urine pH (4.5-7.5) Ur Specific [place] (1.000-1.030) Urine Protein (Negative) Urine Glucose (UA) (Negative) Urine Ketones (Negative) Urine Blood (Negative) Urine Nitrite (Negative) Urine Bilirubin (Negative) Urine Urobilinogen (Negative) Ur Leukocyte Esterase (Negative) Urine WBC (Auto) (0-5) /hpf Urine RBC (Auto) (0-4) /hpf U Hyaline Cast (Auto) (0-5) /lpf U Epithel Cells (Auto) (0-5) /lpf Urine Bacteria (Auto) (Negative) SARS-CoV-2, RNA, NAAT NEGATIVE (NEGATIVE) 05/21/21 05/21/21 05/21/21 Range/Units 14:25 14:10 14:10 WBC (4.8-10.8) K/uL RBC (4.2-5.4) M/uL Hgb (12.0-16.0) g/dL Hct (37-47) % MCV (80-100) fL MCH (25-34) pg MCHC (32-36) g/dL RDW Std Deviation (36.4-46.3) fL RDW Coeff of Tank (11.5-14.5) % Plt Count (130-400) K/uL MPV (7.4-10.4) fL Immature Gran % (Auto) % Neut % (Auto) % Lymph % (Auto) % [place] % (Auto) % Eos % (Auto) % Baso % (Auto) % Neut # (Auto) (1.4-6.5) K/uL Lymph # (Auto) (1.2-3.4) K/uL [place] # (Auto) (0.11-0.59) K/uL Eos # (Auto) (0-0.5) K/uL Baso # (Auto) (0-0.2) K/uL Immature Gran # (Auto) (0.00-0.02) K/uL Sodium 140 (136-145) mmol/L Potassium 3.7 (3.5-5.1) mmol/L Chloride 106 (98-107) mmol/L Carbon Dioxide 26 (21-32) mmol/L Anion Gap 8 (3-11) BUN 7 (6-23) mg/dl Creatinine 0.59 L (0.6-1.2) mg/dl Est Cr Clr Drug Dosing 185.2 ml/min Est GFR ( Amer) 137.6 ml/min Est GFR (Non-Af Amer) 118.7 ml/min BUN/Creatinine Ratio 11.9 (10-20) Glucose 118 H (70-99(Fasting)) mg/dl Calcium 9.5 (8.5-10.1) mg/dl Total Bilirubin 3.4 H (0.2-1.0) mg/dl AST 533 H (13-39) U/L ALT 601 H (7-52) U/L Alkaline Phosphatase 181 H (34-104) U/L Total Protein 7.1 (6.0-8.3) gm/dl Albumin 4.4 (3.4-5.0) gm/dl Globulin 2.7 (2.5-4.0) gm/dl Albumin/Globulin Ratio 1.6 (0.9-2) Lipase 23 (11-82) U/L HCG, Qual Negative (Negative) Urine Color Dark Yellow Urine Appearance Clear (Clear) Urine pH 8.0 H (4.5-7.5) Ur Specific [place] 1.012 (1.000-1.030) Urine Protein Negative (Negative) Urine Glucose (UA) Negative (Negative) Urine Ketones Negative (Negative) Urine Blood 2+ H (Negative) Urine Nitrite Negative (Negative) Urine Bilirubin 2+ H (Negative) Urine Urobilinogen Negative (Negative) Ur Leukocyte Esterase Trace H (Negative) Urine WBC (Auto) 1-5 (0-5) /hpf Urine RBC (Auto) 10-30 H (0-4) /hpf U Hyaline Cast (Auto) 0 (0-5) /lpf U Epithel Cells (Auto) 5-10 H (0-5) /lpf Urine Bacteria (Auto) Negative (Negative) SARS-CoV-2, RNA, NAAT (NEGATIVE) 05/21/21 Range/Units 14:10 WBC 5.35 (4.8-10.8) K/uL RBC 4.84 (4.2-5.4) M/uL Hgb 14.2 (12.0-16.0) g/dL Hct 42.0 (37-47) % MCV 86.8 (80-100) fL MCH 29.3 (25-34) pg MCHC 33.8 (32-36) g/dL RDW Std Deviation 43.3 (36.4-46.3) fL RDW Coeff of Tank 13.5 (11.5-14.5) % Plt Count 236 (130-400) K/uL MPV 11.7 H (7.4-10.4) fL Immature Gran % (Auto) 0.2 % Neut % (Auto) 70.4 % Lymph % (Auto) 20.0 % [place] % (Auto) 7.7 % Eos % (Auto) 1.3 % Baso % (Auto) 0.4 % Neut # (Auto) 3.77 (1.4-6.5) K/uL Lymph # (Auto) 1.07 L (1.2-3.4) K/uL [place] # (Auto) 0.41 (0.11-0.59) K/uL Eos # (Auto) 0.07 (0-0.5) K/uL Baso # (Auto) 0.02 (0-0.2) K/uL Immature Gran # (Auto) 0.01 (0.00-0.02) K/uL Sodium (136-145) mmol/L Potassium (3.5-5.1) mmol/L Chloride (98-107) mmol/L Carbon Dioxide (21-32) mmol/L Anion Gap (3-11) BUN (6-23) mg/dl Creatinine (0.6-1.2) mg/dl Est Cr Clr Drug Dosing ml/min Est GFR ( Amer) ml/min Est GFR (Non-Af Amer) ml/min BUN/Creatinine Ratio (10-20) Glucose (70-99(Fasting)) mg/dl Calcium (8.5-10.1) mg/dl Total Bilirubin (0.2-1.0) mg/dl AST (13-39) U/L ALT (7-52) U/L Alkaline Phosphatase (34-104) U/L Total Protein (6.0-8.3) gm/dl Albumin (3.4-5.0) gm/dl Globulin (2.5-4.0) gm/dl Albumin/Globulin Ratio (0.9-2) Lipase (11-82) U/L HCG, Qual (Negative) Urine Color Urine Appearance (Clear) Urine pH (4.5-7.5) Ur Specific [place] (1.000-1.030) Urine Protein (Negative) Urine Glucose (UA) (Negative) Urine Ketones (Negative) Urine Blood (Negative) Urine Nitrite (Negative) Urine Bilirubin (Negative) Urine Urobilinogen (Negative) Ur Leukocyte Esterase (Negative) Urine WBC (Auto) (0-5) /hpf Urine RBC (Auto) (0-4) /hpf U Hyaline Cast (Auto) (0-5) /lpf U Epithel Cells (Auto) (0-5) /lpf Urine Bacteria (Auto) (Negative) SARS-CoV-2, RNA, NAAT (NEGATIVE) (1) Cholelithiasis Biliary obstruction: with biliary obstruction Cholecystitis presence: without cholecystitis Cholelithiasis location: gallbladder Qualified Code(s): K80.21 - Calculus of gallbladder without cholecystitis with obstruction
[2021-05-22] MEDS: MoRPHine SULFATE 2 MG/ML CARP IV PRN ×2 (10:58→22:12)
--- NOTE | 2021-05-22 11:06 | Surgery Progress Note ---
Date of Service May 22, 2021 Assessment & Plan (1) Choledocholithiasis: Plan: Patient here with RUQ pain, nausea/vomiting -RUQ US has revealed + cholelithiasis within a distended gallbladder w/ biliary ductal dilation, F/U with MRCP showed + choledocholithiasis -WBC 3.9, LFTs elevated at TB: 4.3, AST: 301, ALT: 493 -Pt tender in RUQ -GI on board and planning on ERCP today -We will plan on cholecystectomy tomorrow with Dr. Bunch. Please keep NPO at midnight Admission and Anticipated Discharge Date Admission Date: May 21, 2021 Subjective Patient having some ongoing pain and nausea this AM. Burping. Physical Exam Physical Exam: awake/alert, NAD Gastrointestinal (Abdomen): Inspection/Auscultation: abdomen not distended Percussion/Palpation: + abdomen tender (RUQ ttp) and abdomen soft Results & Data ([facility]) Vital Signs (Past 12 Hours) Vital Signs Temp Pulse Resp BP Pulse Ox 05/22/21 07:44 37 C 47 L 16 118/80 99 PG Care Time/CCT Total # of Minutes Spent Total Time Spent with Patient: Total time spent is greater than 50% in coordination of care (as documented) at patient's floor/unit and/or counseling patient: Coding Level of Care Code 45986 Subseq Hosp Care Lvl 1 Diagnoses Choledocholithiasis K80.50
[2021-05-22] MEDS ORDERED: ONDANSETRON INJ 2 MG/ML 2 ML VIAL ONE (14:31)
[2021-05-22] MEDS ORDERED: DEXAMETHASONE SOD INJ 4 MG/ML VIAL ONE (14:31)
[2021-05-22] MEDS ORDERED: PROPOFOL IV EMULSION 10 MG/ML 20 ML VIAL IV ONE ×4 (14:31→16:00)
[2021-05-22] MEDS ORDERED: LIDOCAINE 2% 2 ML VIAL/AMP(20MG/ML) INFIL ONE (14:31)
[2021-05-22] MEDS ORDERED: MIDAZOLAM HCL 1 MG/ML 2ML VIAL ONE (14:32)
[2021-05-22] MEDS ORDERED: fentaNYL citrate 100 MCG/2 ML VIAL ONE (14:32)
[2021-05-22] MEDS ORDERED: INDOMETHACIN 50 MG SUPP PR ONE (14:53)
--- NOTE | 2021-05-22 15:17 | History & Physical Bridge Note ---
Date of Service May 22, 2021 History & Physical Bridge Note I have examined the patient, reviewed the History & Physical and in the interval since the performance of the History & Physical I have noted the following changes of clinical significance: no changes noted ERCP Patient was explained in detail regarding risks, benefits, limitations and alternatives of the above endoscopic procedure. Risks of intravenous sedation used for procedure were also explained. Risks include, but not limited to perforation, bleeding, infection, respiratory distress, cardiac arrest and . Patient is also aware about the possibility of missed lesion. Patient's questions were answered. The patient verbalized understanding the information and agreed to undergo the procedure.
--- NOTE | 2021-05-22 15:25 | Anesthesiology Consultation ---
Date of Service May 22, 2021 Assessment & Plan (1) Encounter for pre-operative examination: Chart Review Chart Review: Acceptable Risk for Surgery and Patient NOT seen in Pre Admission Testing Consults Requested none History Surgery Operation Date: 05/22/21 10:00 Proposed Procedures p Endoscopic Retrograde Cholangiopancreatogram - Bhanu Ayala MD Operation Date: 05/23/21 15:15 Proposed Procedures p Laparoscopic Cholecystectomy - Harley Bunch DO Height/Weight Height: 5 ft 8 in Weight: 124.5 kg Allergies Allergy/AdvReac Type Severity Reaction Status Date / Time No Known Allergies Allergy Verified 05/21/21 15:41 Medications Home Medications Medication Instructions Recorded Confirmed Last Taken multivitamin 1 tab PO DAILY 12/08/19 05/21/21 Unknown norgestimate 0.25 mg-ethinyl 1 tab PO DAILY #84 tab 03/14/21 05/21/21 Unknown estradiol 35 mcg tablet (Sprintec (28)) Active Medications Generic Name Dose Route Start Last Admin Trade Name Freq PRN Reason Stop Dose Admin Potassium Chloride/Dextrose/Sod Cl 20 meq in 1,000 mls @ 150 mls/hr 05/21/21 23:00 05/22/21 13:57 D5nss + 20meq Kcl IV 06/20/21 22:59 0 mls/hr .Q6H40M MINESH Infusion Protocol Famotidine 20 mg/ Syringe 5 mls @ 2.5 mls/min 05/21/21 22:39 05/22/21 08:02 IV 06/20/21 22:38 2.5 mls/min BID MINESH Administration Piperacillin Sod/Tazobactam 120 mls @ 30 mls/hr 05/22/21 00:00 05/22/21 12:08 Sod 4.5 gm/ Dextrose IV 06/01/21 00:00 Infused Q8H MINESH Infusion Protocol Morphine Sulfate 2 mg 05/21/21 22:39 05/22/21 10:58 Morphine Sulfate 2 Mg/Ml Carp IV 06/04/21 22:38 2 mg Q3H PRN Administration Pain Multivitamins 1 tab 05/22/21 09:00 05/22/21 07:45 Multivitamin Tab PO 06/21/21 08:59 Not Given DAILY MINESH Ondansetron HCl 4 mg 05/21/21 22:39 05/22/21 07:57 Ondansetron Inj 2 Mg/Ml 2 Ml Vial IV 06/20/21 22:38 4 mg Q6H PRN Administration Nausea And Vomiting NPO Date Last Intake of Fluids: 05/21/21 Time Last Intake of Fluids: 15:00 Date Last Intake of Solids: 05/21/21 Time Last Intake of Solids: 15:00 Past Medical History Medical History (Updated 05/22/21 @ 15:25 by Aurelio Reilly MD) Choledocholithiasis Common bile duct dilatation Elevated liver enzymes Migraine Morbid obesity with BMI of 40.0-44.9, adult Varicella Exercise / Class Metabolic Activity II 4-5 Yardwork/Stairs/Walk up hill Past Family History Family History Grandfather (Maternal) Congenital hip deformity Uncle Congenital hip deformity uncle Grandmother (Maternal) Breast cancer Father Hypertension Denies family history of Ovarian cancer Prostate cancer Myocardial infarction Colorectal cancer Past Surgical History Surgical History H/O oral surgery History of appendectomy S/P wisdom tooth extraction Past Anesthesia History No Hx of Anesthesia Complications and No Family Hx of Anesthesia Complications Social History Smoking Status: Never smoker Hx Alcohol Use: No Hx Substance Use: No Physical Exam Vital Signs Last Vital Signs Temp 37.1 C 05/22/21 14:24 Pulse 63 05/22/21 14:24 Resp 20 05/22/21 14:24 BP 109/65 05/22/21 14:24 Pulse Ox 99 05/22/21 14:24 Testing Laboratory Results 05/22/21 06:47 05/22/21 06:47 Urine Color Dark Yellow 05/21/21 14:25 Urine Appearance Clear (Clear) 05/21/21 14:25 Urine pH 8.0 (4.5-7.5) H 05/21/21 14:25 Ur Specific [place] 1.012 (1.000-1.030) 05/21/21 14:25 Urine Protein Negative (Negative) 05/21/21 14:25 Urine Glucose (UA) Negative (Negative) 05/21/21 14:25 Urine Ketones Negative (Negative) 05/21/21 14:25 Urine Nitrite Negative (Negative) 05/21/21 14:25 Ur Leukocyte Esterase Trace (Negative) H 05/21/21 14:25 Urine WBC (Auto) 1-5 /hpf (0-5) 05/21/21 14:25 Urine RBC (Auto) 10-30 /hpf (0-4) H 05/21/21 14:25 U Hyaline Cast (Auto) 0 /lpf (0-5) 05/21/21 14:25 U Epithel Cells (Auto) 5-10 /lpf (0-5) H 05/21/21 14:25 Urine Bacteria (Auto) Negative (Negative) 05/21/21 14:25 Electrocardiogram Date: 05/22/21 Findings: + SB @ (48) Sinus rhythm with 1st degree A-V block Left axis deviation Right bundle branch block Inferior infarct (cited on or before 27-NOV-2019) Abnormal ECG When compared with ECG of 29-NOV-2019 06:20, T wave inversion no longer evident in Inferior leads Nonspecific T wave abnormality no longer evident in Lateral leads
[2021-05-22] MEDS ORDERED: KETAMINE 50 MG/5 ML SYRINGE ONE (15:35)
--- NOTE | 2021-05-22 16:11 | Operative Report ---
Post Operative Report Pre & Post Diagnosis Operation Date: 05/22/21 10:00 Pre-Op Diagnosis: BILIARY COLIC, ABNORMAL LFTS Post-Op Diagnosis: stones Operation Date: 05/23/21 15:15 <No data on this case meets the specified criteria> I identified the patient and participated in the time-out.: Yes Procedure Operation Date: 05/22/21 10:00 Actual Procedures p Endoscopic Retrograde Cholangiopancreato - Bhanu Ayala MD Operation Date: 05/23/21 15:15 <No data on this case meets the specified criteria> Surgeon Bhanu Ayala MD Counter Intelligence none Estimated Blood Loss 0 Findings See Below (CBD stones removed, cholangitis, Stent placed) Specimens None Description of Procedure ERCP I attest to the content of the Intraoperative Record and any orders documented therein. Any exceptions are noted below.
--- NOTE | 2021-05-22 16:20 | GI REPORT ---
Patient Name: Emelia Bynum Procedure Date: 05/22/2021 3:19 PM Date of : 1985 Admit Type: Inpatient Age: 35 Gender: Female Attending MD: Bhanu Ayala MD Procedure: ERCP Providers: Bhanu Ayala MD Referring MD: Demetrius Block Indications: Bile duct stone on magnetic resonance cholangiopancreatography, For therapy of bile duct stone(s) Medicines: Propofol per Anesthesia Complications: No immediate complications. Estimated Blood Loss: Estimated blood loss: none. Procedure: Pre-Anesthesia Assessment: - Prior to the procedure, a History and Physical was performed, and patient medications, allergies and sensitivities were reviewed. The patient's tolerance of previous anesthesia was reviewed. - The risks and benefits of the procedure and the sedation options and risks were discussed with the patient. All questions were answered and informed consent was obtained. - Patient identification and proposed procedure were verified prior to the procedure by the physician and the nurse. The procedure was verified in the procedure room. - Pre-procedure physical examination revealed no contraindications to sedation. After obtaining informed consent, the scope was passed under direct vision. Throughout the procedure, the patient's blood pressure, pulse, and oxygen saturations were monitored continuously. The Duodenoscope was introduced through the mouth, and advanced to the duodenum and used to inject contrast into the bile duct. The ERCP was accomplished without difficulty. The patient tolerated the procedure well. Findings: The processes chemical design engineer film was normal. The esophagus was successfully intubated under direct vision. The scope was advanced to a normal major papilla in the descending duodenum without detailed examination of the pharynx, larynx and associated structures, and upper GI tract. The upper GI tract was grossly normal. A 0.035 inch straight standard wire was passed into the biliary tree. The Fusion OMNI sphincterotome was passed over the guidewire and the bile duct was then deeply cannulated. Contrast was injected. I personally interpreted the bile duct images. Ductal flow of contrast was adequate. Image quality was adequate. Contrast extended to the main bile duct. Opacification of the entire biliary tree except for the gallbladder was successful. The maximum diameter of the ducts was 9 mm. Biliary sphincterotomy was made with a monofilament traction (standard) sphincterotome using ERBE electrocautery. The sphincterotomy oozed blood. The biliary tree was swept with an 11.5 mm balloon starting at the bifurcation. A few stones were removed. No stones remained. Pus was swept from the duct. One 10 Fr by 8 cm plastic biliary stent with a single external flap and a single internal flap was placed into the common bile duct. Bile flowed through the stent. The stent was in good position. Indomethacin 100 mg was given via suppository to decrease the risk of post-ERCP pancreatitis (PEP). PD was not cannulated. Impression: - Choledocholithiasis was found. Complete removal was accomplished by biliary sphincterotomy and balloon extraction. - One plastic biliary stent was placed into the common bile duct. Recommendation: - Return patient to [facility] for ongoing care. - Repeat ERCP in 6 weeks to remove stent. Bhanu Ayala MD 05/22/2021 4:20:13 PM This report has been signed electronically. Note Initiated On: 05/22/2021 3:19 PM Number of Addenda: 0 I attest to the content of the Intraoperative Record and orders documented therein, exceptions below {[id number]}
--- NOTE | 2021-05-22 16:25 | Anesthesiology Progress Note ---
Date of Service May 22, 2021 Anesthesia Post Procedure Vital Signs Vital Signs: Temp Pulse Pulse Resp BP BP Pulse Ox 05/22/21 14:24 37.1 C 63 20 109/65 99 05/22/21 07:44 37 C 47 L 16 118/80 99 05/21/21 19:54 37 C 66 20 129/82 98 05/21/21 19:05 45 L 15 110/64 93 05/21/21 19:00 46 L 12 96 05/21/21 18:00 58 L 20 130/72 98 05/21/21 17:30 53 L 14 98 05/21/21 17:00 64 17 100 05/21/21 16:31 62 20 99 Pain Intensity Abdomen: Pain Intensity: 7 Transfer of Care Handoff Completed per policy Notes Mental Status: alert / awake / arousable and participated in evaluation Patient Amnestic to Procedure: Yes Nausea / Vomiting: adequately controlled Pain: adequately controlled Airway Patency, RR, SpO2: stable & adequate BP & HR: stable & adequate Hydration State: stable & adequate Anesthetic Complications: no major complications apparent and Pt Satisfied with anesthetic care
--- NOTE | 2021-05-22 16:56 | Anesthesiology Consultation ---
Date of Service May 22, 2021 Assessment & Plan (1) Encounter for pre-operative examination: Chart Review Chart Review: Acceptable Risk for Surgery and Patient NOT seen in Pre Admission Testing Consults Requested none History Surgery Operation Date: 05/22/21 10:00 Proposed Procedures p Endoscopic Retrograde Cholangiopancreatogram - Bhanu Ayala MD Operation Date: 05/23/21 15:15 Proposed Procedures p Laparoscopic Cholecystectomy - Harley Bunch DO Height/Weight Height: 5 ft 8 in Weight: 124.5 kg Allergies Allergy/AdvReac Type Severity Reaction Status Date / Time No Known Allergies Allergy Verified 05/21/21 15:41 Medications Home Medications Medication Instructions Recorded Confirmed Last Taken multivitamin 1 tab PO DAILY 12/08/19 05/21/21 Unknown norgestimate 0.25 mg-ethinyl 1 tab PO DAILY #84 tab 03/14/21 05/21/21 Unknown estradiol 35 mcg tablet (Sprintec (28)) Active Medications Generic Name Dose Route Start Last Admin Trade Name Freq PRN Reason Stop Dose Admin Potassium Chloride/Dextrose/Sod Cl 20 meq in 1,000 mls @ 150 mls/hr 05/21/21 23:00 05/22/21 13:57 D5nss + 20meq Kcl IV 06/20/21 22:59 0 mls/hr .Q6H40M MINESH Infusion Protocol Famotidine 20 mg/ Syringe 5 mls @ 2.5 mls/min 05/21/21 22:39 05/22/21 08:02 IV 06/20/21 22:38 2.5 mls/min BID MINESH Administration Piperacillin Sod/Tazobactam 120 mls @ 30 mls/hr 05/22/21 00:00 05/22/21 12:08 Sod 4.5 gm/ Dextrose IV 06/01/21 00:00 Infused Q8H MINESH Infusion Protocol Morphine Sulfate 2 mg 05/21/21 22:39 05/22/21 10:58 Morphine Sulfate 2 Mg/Ml Carp IV 06/04/21 22:38 2 mg Q3H PRN Administration Pain Multivitamins 1 tab 05/22/21 09:00 05/22/21 07:45 Multivitamin Tab PO 06/21/21 08:59 Not Given DAILY MINESH Ondansetron HCl 4 mg 05/21/21 22:39 05/22/21 07:57 Ondansetron Inj 2 Mg/Ml 2 Ml Vial IV 06/20/21 22:38 4 mg Q6H PRN Administration Nausea And Vomiting NPO Date Last Intake of Fluids: 05/21/21 Time Last Intake of Fluids: 15:00 Date Last Intake of Solids: 05/21/21 Time Last Intake of Solids: 15:00 Past Medical History Medical History Choledocholithiasis Common bile duct dilatation Elevated liver enzymes Migraine Morbid obesity with BMI of 40.0-44.9, adult Varicella Past Family History Family History Grandfather (Maternal) Congenital hip deformity Uncle Congenital hip deformity uncle Grandmother (Maternal) Breast cancer Father Hypertension Denies family history of Ovarian cancer Prostate cancer Myocardial infarction Colorectal cancer Past Surgical History Surgical History H/O oral surgery History of appendectomy S/P wisdom tooth extraction Social History Smoking Status: Never smoker Hx Alcohol Use: No Hx Substance Use: No Physical Exam Vital Signs Last Vital Signs Temp 36.6 C 05/22/21 16:35 Pulse 65 05/22/21 16:45 Resp 17 05/22/21 16:45 BP 138/85 05/22/21 16:45 Pulse Ox 100 05/22/21 16:45 Testing Laboratory Results 05/22/21 06:47 05/22/21 06:47 Urine Color Dark Yellow 05/21/21 14:25 Urine Appearance Clear (Clear) 05/21/21 14:25 Urine pH 8.0 (4.5-7.5) H 05/21/21 14:25 Ur Specific [place] 1.012 (1.000-1.030) 05/21/21 14:25 Urine Protein Negative (Negative) 05/21/21 14:25 Urine Glucose (UA) Negative (Negative) 05/21/21 14:25 Urine Ketones Negative (Negative) 05/21/21 14:25 Urine Nitrite Negative (Negative) 05/21/21 14:25 Ur Leukocyte Esterase Trace (Negative) H 05/21/21 14:25 Urine WBC (Auto) 1-5 /hpf (0-5) 05/21/21 14:25 Urine RBC (Auto) 10-30 /hpf (0-4) H 05/21/21 14:25 U Hyaline Cast (Auto) 0 /lpf (0-5) 05/21/21 14:25 U Epithel Cells (Auto) 5-10 /lpf (0-5) H 05/21/21 14:25 Urine Bacteria (Auto) Negative (Negative) 05/21/21 14:25 Electrocardiogram Date: 05/22/21 Findings: + SB @ (48) Sinus rhythm with 1st degree A-V block Left axis deviation Right bundle branch block Inferior infarct (cited on or before 27-NOV-2019) Abnormal ECG When compared with ECG of 29-NOV-2019 06:20, T wave inversion no longer evident in Inferior leads Nonspecific T wave abnormality no longer evident in Lateral leads
--- NOTE | 2021-05-22 18:38 | Fluoroscopy Report ---
[place] ERCP biliary ductal HISTORY: 35 years-old Female EXPLORE DUCTS cholelithiasis with choledocholithiasis COMPARISON: MRCP 05/21/2021 TECHNIQUE: 10 spot fluoroscopic images of the abdominal right upper quadrant were obtained utilizing 26.6 seconds fluoroscopy time FINDINGS: Endoscope is noted within the duodenum. There is cannulation of the common bile duct with retrograde injection of contrast an subsequent balloon sweep of the common bile duct. Opacified cystic duct. Ext rahepatic biliary ductal dilation is noted without significant intrahepatic biliary ductal dilation. Subsequent images demonstrate limited of a common bile duct stent which appears to be in satisfactory positioning. Spillage of contrast into the duodenum. IMPRESSION: Status post placement of a common bile duct stent which appears to be in satisfactory pos itioning. ACT 112: Negative or not required by law. The above report was generated using voice recognition software. It may contain grammatical, syntax o r spelling errors. Electronically signed by: Aki Joaquin M.D. 05/22/2021 6:36 PM
--- NOTE | 2021-05-22 20:22 | Hospitalist Progress Note ---
Date of Service May 22, 2021 Assessment & Plan (1) Choledocholithiasis: Plan: [facility] Dr Ayala. stones from CBD removed, pus seen in CBD, stent deployed. Remains on IV zosyn, fluids, etc. Repeat LFTs am. Lap sanjeev tomorrow. (2) Cholangitis: Plan: Seen on ERCP today. Cont IV zosyn. Advise 10-14 of IV/PO abx for such. (3) Cholelithiasis: Plan: s/p ERCP today for #1. LFTs in am. Cont IV zosyn and fluids. Clear liquids today until MN, then NPO after MN for lap sanjeev tomorrow. I am suspicious she has acute cholecystitis despite imaging studies suggesting otherwise. Either way continue IV abx. appreciate gen surg & GI consultations. (4) Elevated liver enzymes: Plan: 2nd to #1 repeat AM (5) Morbid obesity with BMI of 40.0-44.9, adult: Plan: BMI 41.7 (6) DVT prophylaxis: Plan: hold on chemical means given the ERCP today and her lap sanjeev tomorrow ambulation Admission and Anticipated Discharge Date Admission Date: May 21, 2021 Subjective during bedside rounds patient reports overall feels better than when she first arrived to [facility], but is still having episodes of pain/nausea pain is in same location - high epigastric area/RUQ no vomiting no fever I spoke with patient by phone post-ERCP and she said "this is the best I have felt in a few days" had clear liquids post-ERCP and tolerated them well w/o difficulty or nausea or worsening abd pain Review of Systems Review of Systems: gen - no fevers, no chills cv - no chest pain pulm - no dyspnea Physical Exam Physical Exam: gen - obese, NAD, pleasant eyes - scant icterus b/l mouth - MM still slightly pasty heart - bradycardic, s1 s2, no murmur lungs - CTA b/l abd - tender epigastric region, BS+, ND, soft ext - no edema, pulses 2+b/l skin - no jaundice Results & Data Results & Data ([facility]) Vital Signs (Past 12 Hours) Vital Signs Temp Pulse Pulse Pulse Resp BP Pulse Ox 05/22/21 17:52 36.7 C 54 L 16 150/85 H 100 05/22/21 17:00 36.5 C 67 16 141/90 H 100 05/22/21 16:45 65 17 138/85 100 05/22/21 16:35 36.6 C 72 19 144/91 H 100 05/22/21 16:25 69 20 146/85 H 99 05/22/21 16:18 36.1 C L 78 18 116/84 98 05/22/21 14:24 37.1 C 63 20 109/65 99 Laboratory Results Laboratory Results - last 24 hr 05/22/21 05/22/21 06:47 06:47 WBC 3.90 L RBC 4.33 Hgb 12.9 Hct 37.8 MCV 87.3 MCH 29.8 MCHC 34.1 RDW Std Deviation 44.9 RDW Coeff of Tank 13.9 Plt Count 205 MPV 11.6 H Immature Gran % (Auto) 0.0 Neut % (Auto) 60.9 Lymph % (Auto) 25.4 [place] % (Auto) 10.3 Eos % (Auto) 2.6 Baso % (Auto) 0.8 Neut # (Auto) 2.38 Lymph # (Auto) 0.99 L [place] # (Auto) 0.40 Eos # (Auto) 0.10 Baso # (Auto) 0.03 Immature Gran # (Auto) 0.00 Sodium 141 Potassium 3.7 Chloride 110 H Carbon Dioxide 27 Anion Gap 4 BUN 7 Creatinine 0.69 Est Cr Clr Drug Dosing 158.3 Est GFR ( Amer) 130.7 Est GFR (Non-Af Amer) 112.8 BUN/Creatinine Ratio 10.1 Glucose 112 H Calcium 8.8 Total Bilirubin 4.3 H AST 301 H ALT 493 H Alkaline Phosphatase 181 H Total Protein 6.1 Albumin 3.8 Globulin 2.3 L Albumin/Globulin Ratio 1.7 Diagnostic Findings EKG- my reading - sinus shahab, no ST changes PG Care Time/CCT Total # of Minutes Spent Total Time Spent with Patient: Total time spent is greater than 50% in coordination of care (as documented) at patient's floor/unit and/or counseling patient: Coding Level of Care Code 75287 Subseq Hosp Care Lvl 2 Diagnoses Cholelithiasis K80.21 Biliary obstruction: with biliary obstruction Cholecystitis presence: without cholecystitis Cholelithiasis location: gallbladder Elevated liver enzymes R74.8 Morbid obesity with BMI of 40.0-44.9, adult E66.01; Z68.41 DVT prophylaxis Z29.9 Choledocholithiasis K80.50 Cholangitis K83.09 (1) Cholelithiasis Biliary obstruction: with biliary obstruction Cholecystitis presence: without cholecystitis Cholelithiasis location: gallbladder Qualified Code(s): K80.21 - Calculus of gallbladder without cholecystitis with obstruction
--- NOTE | 2021-05-22 22:04 | Electrocardiogram Report ---
Test Reason : Blood Pressure : / mmHG Vent. Rate : 048 BPM Atrial Rate : 048 BPM P-R Int : 148 ms QRS Dur : 090 ms QT Int : 486 ms P-R-T Axes : 040 030 036 degrees QTc Int : 434 ms Sinus bradycardia Otherwise normal ECG When compared with ECG of 09-FEB-2019 05:12, No significant change was found Confirmed by Scotty York ([id number]) on 05/22/2021 10:03:48 PM Referred By: Demetrius Block Confirmed By:Scotty York
[2021-05-22] MEDS ORDERED: PROCHLORPERAZINE 5 MG in SYRINGE 4 ML IV ONE (22:45)
[2021-05-23 06:15] LABS: Hematocrit (blood only) 36.9 % (37-47); Hemoglobin 12.3 g/dL (12.0-16.0); Mean Corpuscular Hemoglobin 29.4 pg (25-34); Mean Corpuscular Hgb Conc 33.3 g/dL (32-36); Mean Corpuscular Volume 88.3 fL (80-100); Mean Platelet Volume 11.7 fL (7.4-10.4); Platelet Count 184 K/uL (130-400); RDW Coefficient of Variation 13.7 % (11.5-14.5); RDW Standard Deviation 44.6 fL (36.4-46.3); Red Blood Count 4.18 M/uL (4.2-5.4); White Blood Count 4.71 K/uL (4.8-10.8)
[2021-05-23 06:41] LABS: Albumin Globulin Ratio 1.5 (0.9-2); Albumin Level 3.4 gm/dl (3.4-5.0); BUN Creatinine Ratio 9.1 (10-20); Bilirubin,Total 1.4 mg/dl (0.2-1.0); Calcium 8.4 mg/dl (8.5-10.1); Creatinine Clr Calc Pharmacy 165.5 ml/min; Est GFR (African American) 132.6 ml/min; Est GFR (Non-African American) 114.4 ml/min; Globulin 2.2 gm/dl (2.5-4.0); Magnesium 1.8 mg/dl (1.7-2.4); Potassium 4.5 mmol/L (3.5-5.1); Total Protein 5.6 gm/dl (6.0-8.3)
[2021-05-23] MEDS: D5NSS + 20MEQ KCL 20 MEQ/1,000 ML BAG IV SCH ×3 (08:15→20:18)
[2021-05-23] MEDS: FAMOTIDINE 20 MG in SYRINGE 3 ML IV SCH ×2 (09:05→20:27)
[2021-05-23] MEDS: PIPERACILLIN/TAZOBACTAM 4.5 GM in DEXTROSE 5% 100 ML IV SCH ×3 (09:05→23:28)
--- NOTE | 2021-05-23 09:56 | Gastroenterology Progress Note ---
Date of Service May 23, 2021 Assessment & Plan (1) Cholelithiasis: Plan: 35 yearold female admitted with ruq pain, nausea, vomiting, elevated transaminases, gallstones andis mild dilatation of the common bile duct with evidence of choledocholithiasis s/p ERCP 05/22 w/ stone removal, CBD stent placement, clinically feeling well, going for CCY today with improving LFTs Plan per general surgery team GI to sign off OP ERCP for stent removal Thank you for allowing us to participate in the care of this patient. Please call with any acute changes, questions or concerns. Please see addendum below with additional recommendation from my supervising physician. Admission and Anticipated Discharge Date Admission Date: May 21, 2021 Supervising Physician Co-Signing Physician Notes Mild nausea with liquids yesterday Well nourished fm in nad, abd - soft Labs reviewed ERCP note reviewed Agree with further plan of care as above. Subjective Pt was seen and evaluated, chart reviewed. S/P ERCP yesterday, felt great! Had some clear liquids for dinner, no pain but had vomiting later that night No feeling well Plan for CCY today LFTs improving Review of Systems Review of Systems: All systems reviewed & are unremarkable except as noted in HPI & below Physical Exam Constitutional: WD/WN, vitals as above Respiratory: normal respiratory effort, lungs clear to auscultation Cardiovascular: RRR, no murmur, no edema Gastrointestinal (Abdomen): normal bowel sounds, soft, nontender, no hepatosplenomegaly Skin: no rashes, warm and dry Results & Data ([facility]) Vital Signs (Past 12 Hours) Vital Signs Temp Pulse Resp BP Pulse Ox 05/23/21 07:18 36.7 C 52 L 18 103/67 99 05/22/21 22:08 36.9 C 61 17 118/83 99 (1) Cholelithiasis Biliary obstruction: with biliary obstruction Cholecystitis presence: without cholecystitis Cholelithiasis location: gallbladder Qualified Code(s): K80.21 - Calculus of gallbladder without cholecystitis with obstruction
[2021-05-23] MEDS: MoRPHine SULFATE 2 MG/ML CARP IV PRN (10:28)
[2021-05-23] MEDS: MULTIVITAMIN TAB PO SCH (10:36)
[2021-05-23] MEDS: ONDANSETRON INJ 2 MG/ML 2 ML VIAL IV PRN ×2 (11:31→17:53)
--- NOTE | 2021-05-23 14:50 | History & Physical Bridge Note ---
Date of Service May 23, 2021 History & Physical Bridge Note I have examined the patient, reviewed the History & Physical and in the interval since the performance of the History & Physical I have noted the following changes of clinical significance: no changes noted ERCP successful. bilirubin improving. risks discussed/questions answered. will proceed with matthew pace today.
--- NOTE | 2021-05-23 15:07 | Anesthesiology Consultation ---
Date of Service May 23, 2021 Assessment & Plan Chart Review Chart Review: Acceptable Risk for Surgery and Patient NOT seen in Pre Admission Testing Consults Requested none ASA ASA2 Proposed Anesthesia Anesthesia Type: General Risk / Benefits Reviewed With: PT / POA / Parent / Guardian, Accepts Plan and Informed Consent Obtained History Surgery Operation Date: 05/22/21 10:00 Proposed Procedures p Endoscopic Retrograde Cholangiopancreatogram - Bhanu Ayala MD Operation Date: 05/23/21 15:15 Proposed Procedures p Laparoscopic Cholecystectomy - Harley Bunch DO Height/Weight Height: 5 ft 8 in Weight: 124.5 kg Allergies Allergy/AdvReac Type Severity Reaction Status Date / Time No Known Allergies Allergy Verified 05/21/21 15:41 Medications Home Medications Medication Instructions Recorded Confirmed Last Taken multivitamin 1 tab PO DAILY 12/08/19 05/21/21 Unknown norgestimate 0.25 mg-ethinyl 1 tab PO DAILY #84 tab 03/14/21 05/21/21 Unknown estradiol 35 mcg tablet (Sprintec (28)) Active Medications Generic Name Dose Route Start Last Admin Trade Name Freq PRN Reason Stop Dose Admin Potassium Chloride/Dextrose/Sod Cl 20 meq in 1,000 mls @ 150 mls/hr 05/21/21 23:00 05/23/21 08:15 D5nss + 20meq Kcl IV 06/20/21 22:59 150 mls/hr .Q6H40M MINESH Administration Protocol Famotidine 20 mg/ Syringe 5 mls @ 2.5 mls/min 05/21/21 22:39 05/23/21 09:05 IV 06/20/21 22:38 2.5 mls/min BID MINESH Administration Piperacillin Sod/Tazobactam 120 mls @ 30 mls/hr 05/22/21 00:00 05/23/21 13:13 Sod 4.5 gm/ Dextrose IV 06/01/21 00:00 Infused Q8H MINESH Infusion Protocol Morphine Sulfate 2 mg 05/21/21 22:39 05/23/21 10:28 Morphine Sulfate 2 Mg/Ml Carp IV 06/04/21 22:38 2 mg Q3H PRN Administration Pain Multivitamins 1 tab 05/22/21 09:00 05/23/21 10:36 Multivitamin Tab PO 06/21/21 08:59 Not Given DAILY MINESH Ondansetron HCl 4 mg 05/21/21 22:39 05/23/21 11:31 Ondansetron Inj 2 Mg/Ml 2 Ml Vial IV 06/20/21 22:38 4 mg Q6H PRN Administration Nausea And Vomiting NPO Date Last Intake of Fluids: 05/22/21 Time Last Intake of Fluids: 22:00 Date Last Intake of Solids: 05/21/21 Time Last Intake of Solids: 15:00 Past Medical History Medical History Choledocholithiasis Common bile duct dilatation Elevated liver enzymes Migraine Morbid obesity with BMI of 40.0-44.9, adult Varicella Exercise / Class Metabolic Activity II 4-5 Yardwork/Stairs/Walk up hill Past Family History Family History Grandfather (Maternal) Congenital hip deformity Uncle Congenital hip deformity uncle Grandmother (Maternal) Breast cancer Father Hypertension Denies family history of Ovarian cancer Prostate cancer Myocardial infarction Colorectal cancer Past Surgical History Surgical History H/O oral surgery History of appendectomy S/P wisdom tooth extraction Past Anesthesia History No Hx of Anesthesia Complications History of PONV No Hx of PONV and No Hx of Motion Sickness Social History Smoking Status: Never smoker Hx Alcohol Use: No Hx Substance Use: No Review of Systems positive for nausea - denies vomiting Physical Exam Vital Signs Last Vital Signs Temp 36.7 C 05/23/21 07:18 Pulse 52 L 05/23/21 07:18 Resp 18 05/23/21 07:18 BP 103/67 05/23/21 07:18 Pulse Ox 99 05/23/21 07:18 Constitutional + morbidly obese ENMT Mouth: no TMJ abnormality and oral opening not small Thyromental Distance: > or= 3.5 Finger Breadths Mallampati Class: I Neck normal visual inspection; neck extension not limited Respiratory normal respiratory effort Cardiovascular Rate/Rhythm: regular rate and regular rhythm Neurologic moves all extremities Psychiatric Orientation: alert and oriented x 3 Testing Laboratory Results 05/23/21 05:29 05/23/21 05:29 Urine Color Dark Yellow 05/21/21 14:25 Urine Appearance Clear (Clear) 05/21/21 14:25 Urine pH 8.0 (4.5-7.5) H 05/21/21 14:25 Ur Specific [place] 1.012 (1.000-1.030) 05/21/21 14:25 Urine Protein Negative (Negative) 05/21/21 14:25 Urine Glucose (UA) Negative (Negative) 05/21/21 14:25 Urine Ketones Negative (Negative) 05/21/21 14:25 Urine Nitrite Negative (Negative) 05/21/21 14:25 Ur Leukocyte Esterase Trace (Negative) H 05/21/21 14:25 Urine WBC (Auto) 1-5 /hpf (0-5) 05/21/21 14:25 Urine RBC (Auto) 10-30 /hpf (0-4) H 05/21/21 14:25 U Hyaline Cast (Auto) 0 /lpf (0-5) 05/21/21 14:25 U Epithel Cells (Auto) 5-10 /lpf (0-5) H 05/21/21 14:25 Urine Bacteria (Auto) Negative (Negative) 05/21/21 14:25 Electrocardiogram Date: 05/22/21 Findings: + SB @ (48) Sinus rhythm with 1st degree A-V block Left axis deviation Right bundle branch block Inferior infarct (cited on or before 27-NOV-2019) Abnormal ECG When compared with ECG of 29-NOV-2019 06:20, T wave inversion no longer evident in Inferior leads Nonspecific T wave abnormality no longer evident in Lateral leads
[2021-05-23] MEDS ORDERED: EPINEPHrine INJ 1 MG/ML AMP ONE (15:09)
[2021-05-23] MEDS ORDERED: BUPIVACAINE 0.5 % 5 MG/1 ML MPF 30ML VIAL ONE (15:09)
[2021-05-23] MEDS ORDERED: PROMETHAZINE HCL 12.5 MG in SODIUM CHLORIDE 0.9% 50 ML IV PRN (15:11)
[2021-05-23] MEDS ORDERED: ONDANSETRON INJ 2 MG/ML 2 ML VIAL IV PRN (15:11)
[2021-05-23] MEDS ORDERED: ePHEDrine sulfate 50 MG/ML AMP IV PRN (15:11)
[2021-05-23] MEDS ORDERED: ATROPINE SULFATE 0.1 MG/ML 10ML SYR IV PRN (15:11)
[2021-05-23] MEDS ORDERED: HYDROmorphone INJ 1 MG/ML SYRINGE IV PRN (15:11)
[2021-05-23] MEDS ORDERED: DEXAMETHASONE SOD INJ 4 MG/ML VIAL ONE (15:16)
[2021-05-23] MEDS ORDERED: ROCURONIUM BROMIDE 10 MG/ML 5 ML VIAL IV ONE (15:16)
[2021-05-23] MEDS ORDERED: ONDANSETRON INJ 2 MG/ML 2 ML VIAL ONE (15:16)
[2021-05-23] MEDS ORDERED: NEOSTIGMINE METHYLSULFATE 1 MG/ML 10ML VIAL ONE (15:16)
[2021-05-23] MEDS ORDERED: LIDOCAINE 2% 2 ML VIAL/AMP(20MG/ML) INFIL ONE (15:16)
[2021-05-23] MEDS ORDERED: PROPOFOL IV EMULSION 10 MG/ML 20 ML VIAL IV ONE (15:16)
[2021-05-23] MEDS ORDERED: GLYCOPYRROLATE 0.2 MG/ML VIAL ONE (15:16)
[2021-05-23] MEDS ORDERED: fentaNYL citrate 100 MCG/2 ML VIAL ONE ×2 (15:17→15:51)
[2021-05-23] MEDS ORDERED: MIDAZOLAM HCL 1 MG/ML 2ML VIAL ONE (15:17)
--- NOTE | 2021-05-23 16:21 | Operative Report ---
PG Post Operative Report Pre & Post Diagnosis Operation Date: 05/22/21 10:00 Pre-Op Diagnosis: BILIARY COLIC, ABNORMAL LFTS Post-Op Diagnosis: cholelithiasis Operation Date: 05/23/21 15:15 Pre-Op Diagnosis: Biliary Colic Post-Op Diagnosis: cholelithiasis I identified the patient and participated in the time-out.: Yes Procedure Operation Date: 05/22/21 10:00 Actual Procedures p Endoscopic Retrograde Cholangiopancreato - Bhanu Ayala MD Operation Date: 05/23/21 15:15 Actual Procedures p Laparoscopic Cholecystectomy(Not Applicable) - Harley Bunch DO Surgeon Harley Bunch DO Rater Associate tyrell Sorto Estimated Blood Loss 5 Findings See Below (CBD stones removed, cholangitis, Stent placed) Specimens gallbladder Description of Procedure After informed consent was obtained the patient was taken to the operating room and placed in the supine position. After successful intubation the abdomen was sterilely prepped and draped in usual fashion. A periumbilical incision was made with an 11 blade scalpel and carried down through the soft tissue using electrocautery. The anterior rectus fascia was opened using electrocautery and 2 #0 Vicryl stay sutures were placed. The peritoneum was elevated with h emostats and incised under direct vision using Metzenbaum scissors. A finger sweep was performed and a 12 mm Ayala trocar was placed. The abdomen was insufflated to 18 mmHg. The laparoscope was inserted and the abdomen was examined in 360. No gross abnormalities were identified. A subxiphoid 5 mm port and 2 right upper quadrant 5 mm ports were placed under direct vision. The patient was placed in a reverse Trendelenburg position and slightly airplaned to the left. The gallbladder was grasped and elevated superiorly and laterally. A [place] dissector was used to take down adhesions around the neck of the gallbladder. The cystic duct was identified and skeletonized. It was clipped twice proximally and once distally and transected using a laparoscopic scissor. In similar fashion the cystic artery was identified and skeletonized clipped and divided. The gallbladder was removed from the gallbladder fossa with electrocautery. It was placed into an Endo Catch bag. Thorough irrigation was performed. At the end of the procedure there was adequate hemostasis and no evidence of any bile leaks. A final look around the abdomen showed no other abnormalities. The gallbladder and trochars were all removed and the abdomen was desufflated. The fascia of the camera port was closed using 0 Vicryl in a [id number] fashion. All the wounds were irrigated and closed using 4-0 Monocryl. Marcaine was injected around them for postoperative analgesia and skin glue used as a dressing. The patient was awaken extubated and transferred to recovery in stable condition. My physician's assistant warehouse manager was present throughout the entire case... helped with prepping the patient. With exposure for trocar placement, as well as retracted the gallbladder throughout the case and also assisted with wound closure and dressing placement. I attest to the content of the Intraoperative Record and any orders documented therein. Any exceptions are noted below.
[2021-05-23] MEDS: fentaNYL citrate 100 MCG/2 ML VIAL IV PRN ×2 (16:42→16:48)
--- NOTE | 2021-05-23 17:34 | Anesthesiology Progress Note ---
Date of Service May 23, 2021 Anesthesia Post Procedure Vital Signs Vital Signs: Temp Pulse Pulse Resp BP Pulse Ox 05/23/21 17:30 55 L 16 165/94 H 100 05/23/21 17:20 56 L 16 148/99 H 100 05/23/21 17:10 36.5 C 52 L 17 152/90 H 100 05/23/21 17:00 53 L 12 151/91 H 100 05/23/21 16:50 52 L 14 149/89 H 100 05/23/21 16:40 70 14 150/95 H 100 05/23/21 16:31 36.0 C L 87 18 153/91 H 97 05/23/21 15:06 37.0 C 50 L 16 128/85 99 05/23/21 07:18 36.7 C 52 L 18 103/67 99 05/22/21 22:08 36.9 C 61 17 118/83 99 05/22/21 17:52 36.7 C 54 L 16 150/85 H 100 Pain Intensity Abdomen: Pain Intensity: 2 Transfer of Care Handoff Completed per policy Notes Mental Status: alert / awake / arousable and participated in evaluation Patient Amnestic to Procedure: Yes Nausea / Vomiting: adequately controlled Pain: adequately controlled Airway Patency, RR, SpO2: stable & adequate BP & HR: stable & adequate Hydration State: stable & adequate Anesthetic Complications: no major complications apparent and Pt Satisfied with anesthetic care
[2021-05-23] MEDS ORDERED: HYDROCODONE/ACETAMOPHEN 5/325MG TAB PO PRN (17:41)
[2021-05-23] MEDS ORDERED: LACTATED RINGER'S 1,000 ML IV SCH (17:41)
[2021-05-23] MEDS ORDERED: MoRPHine SULFATE 2 MG/ML CARP IV PRN (17:41)
[2021-05-23] MEDS ORDERED: MoRPHine SULFATE 4 MG/ML 1 ML CARP\\VIAL IV PRN (17:41)
[2021-05-23] MEDS: HYDROCODONE/ACETAMOPHEN 5/325MG TAB PO PRN ×2 (19:31→23:28)
--- NOTE | 2021-05-23 20:31 | Hospitalist Progress Note ---
Date of Service May 23, 2021 Assessment & Plan (1) Choledocholithiasis: Plan: POD #1 s/p ERCP by [facility] GI - Dr Ayala. stones from CBD removed, pus seen in CBD, stent deployed. Remains on IV zosyn, fluids, etc. Repeat LFTs today much improved. Lap sanjeev today. Repeat LFTs in am. No evidence clinically of post-ERCP pancreatitis. Will need stent removed in 6 weeks post-discharge. (2) Cholangitis: Plan: Seen on ERCP yesterday. Cont IV zosyn. Change to augmentin day of discharge. WBC count normal on cbc. Advise 10-14 of IV/PO abx for such. (3) Cholelithiasis: Plan: POD #1 s/p ERCP as above. LFTs improved. Cont IV zosyn and fluids. lap sanjeev today. appreciate gen surg & GI consultations. (4) Elevated liver enzymes: Plan: 2nd to #1, #2 improving repeat AM (5) Morbid obesity with BMI of 40.0-44.9, adult: Plan: BMI 41.7 (6) DVT prophylaxis: Plan: hold on chemical means given the ERCP yesterday and her lap sanjeev today ambulation Plan: if matthew pace goes well today hopeful for d/c home tomorrow Admission and Anticipated Discharge Date Admission Date: May 21, 2021 Subjective had ERCP yesterday felt better after such then tried to have clear liquids yesterday evening and felt poorly following such she feels ok this am some intermittent nausea but no emesis no change in abd pain - same location, no worse than previous; passing flatus Review of Systems Review of Systems: gen - no fevers cv - no cp pulm - no dyspnea or CLARKE Physical Exam Physical Exam: gen - obese, NAD, pleasant eyes - no icterus today mouth - MMM heart - bradycardic, s1 s2, no murmur lungs - CTA b/l abd - mildly tender epigastric region, BS+, ND, soft ext - no edema, pulses 2+b/l skin - no jaundice Results & Data Results & Data ([facility]) Vital Signs (Past 12 Hours) Vital Signs Temp Pulse Pulse Pulse Resp BP Pulse Ox 05/23/21 19:42 36.3 C L 65 20 131/83 97 05/23/21 18:40 37.2 C 55 L 16 147/86 H 97 05/23/21 18:10 37.2 C 53 L 16 143/88 H 97 05/23/21 17:40 37.1 C 54 L 16 158/93 H 96 05/23/21 17:30 55 L 16 165/94 H 100 05/23/21 17:20 56 L 16 148/99 H 100 05/23/21 17:10 36.5 C 52 L 17 152/90 H 100 05/23/21 17:00 53 L 12 151/91 H 100 05/23/21 16:50 52 L 14 149/89 H 100 05/23/21 16:40 70 14 150/95 H 100 05/23/21 16:31 36.0 C L 87 18 153/91 H 97 05/23/21 15:06 37.0 C 50 L 16 128/85 99 Laboratory Results Laboratory Results - last 24 hr 05/23/21 05/23/21 05:29 05:29 WBC 4.71 L RBC 4.18 L Hgb 12.3 Hct 36.9 L MCV 88.3 MCH 29.4 MCHC 33.3 RDW Std Deviation 44.6 RDW Coeff of Tank 13.7 Plt Count 184 MPV 11.7 H Sodium 142 Potassium 4.5 D Chloride 113 H Carbon Dioxide 27 Anion Gap 2 L BUN 6 Creatinine 0.66 Est Cr Clr Drug Dosing 165.5 Est GFR ( Amer) 132.6 Est GFR (Non-Af Amer) 114.4 BUN/Creatinine Ratio 9.1 L Glucose 125 H Calcium 8.4 L Magnesium 1.8 Total Bilirubin 1.4 H D AST 83 H ALT 292 H Alkaline Phosphatase 143 H Total Protein 5.6 L Albumin 3.4 Globulin 2.2 L Albumin/Globulin Ratio 1.5 PG Care Time/CCT Total # of Minutes Spent Total Time Spent with Patient: Total time spent is greater than 50% in coordination of care (as documented) at patient's floor/unit and/or counseling patient: Coding Level of Care Code 28485 Subseq Hosp Care Lvl 2 Diagnoses Choledocholithiasis K80.50 Cholangitis K83.09 Cholelithiasis K80.21 Biliary obstruction: with biliary obstruction Cholecystitis presence: without cholecystitis Cholelithiasis location: gallbladder Elevated liver enzymes R74.8 Morbid obesity with BMI of 40.0-44.9, adult E66.01; Z68.41 DVT prophylaxis Z29.9 (1) Cholelithiasis Biliary obstruction: with biliary obstruction Cholecystitis presence: without cholecystitis Cholelithiasis location: gallbladder Qualified Code(s): K80.21 - Calculus of gallbladder without cholecystitis with obstruction
[2021-05-24 06:42] LABS: Basophils # (auto) 0.01 K/uL (0-0.2); Basophils % (auto) 0.1 %; Hematocrit (blood only) 39.8 % (37-47); Hemoglobin 13.4 g/dL (12.0-16.0); Immature Granulocytes # (auto) 0.02 K/uL (0.00-0.02); Immature Granulocytes % (auto) 0.2 %; Lymphocytes # (auto) 0.72 K/uL (1.2-3.4); Lymphocytes % (auto) 6.1 %; Mean Corpuscular Hemoglobin 29.4 pg (25-34); Mean Corpuscular Hgb Conc 33.7 g/dL (32-36); Mean Corpuscular Volume 87.3 fL (80-100); Mean Platelet Volume 11.8 fL (7.4-10.4); Monocytes # (auto) 0.37 K/uL (0.11-0.59); Monocytes % (auto) 3.1 %; Neutrophils # (auto) 10.65 K/uL (1.4-6.5); Neutrophils % (auto) 90.5 %; Platelet Count 241 K/uL (130-400); RDW Coefficient of Variation 13.4 % (11.5-14.5); Red Blood Count 4.56 M/uL (4.2-5.4); White Blood Count 11.77 K/uL (4.8-10.8)
[2021-05-24] MEDS: HYDROCODONE/ACETAMOPHEN 5/325MG TAB PO PRN (07:30)
[2021-05-24 07:43] LABS: Albumin Level 3.8 gm/dl (3.4-5.0); BUN Creatinine Ratio 8.8 (10-20); Bilirubin Direct 0.3 mg/dl (0-0.2); Calcium 9.2 mg/dl (8.5-10.1); Creatinine Clr Calc Pharmacy 191.7 ml/min; Est GFR (African American) 139.2 ml/min; Est GFR (Non-African American) 120.1 ml/min; Potassium 3.9 mmol/L (3.5-5.1); Total Protein 6.4 gm/dl (6.0-8.3)
[2021-05-24] MEDS ORDERED: AMOXICILLIN/CLAVULANATE 875 MG TAB PO SCH (08:00)
[2021-05-24] MEDS: FAMOTIDINE 20 MG in SYRINGE 3 ML IV SCH (08:54)
[2021-05-24] MEDS: MULTIVITAMIN TAB PO SCH (08:54)
[2021-05-24] MEDS ORDERED: ADVANCED PROBIOTIC 1250 MG CAPSULE PO SCH (09:00)
--- NOTE | 2021-05-24 11:52 | Discharge Summary ---
Date of Service date of admission - May 21, 2021 date of discharge - May 24, 2021 Admission HPI Per Admitting Provider Leonidas 35yo female presents with multiple episodes of epigastric pain with radiation to her upper back beginning Thursday after eating chicken salad sandwich. The pain lasted all day Thursday into Thursday night. She did have emesis then. On Thursday am she awoke feeling improved, but then developed pain in her upper abdomen again after eating dinner that night, and also had emesis. The pain was quite severe last pm and lasted most of the night until she finally fell asleep about 2am. This am upon awakening she felt poorly with fatigue, nausea, cold chills. She tried to go to work but felt too ill. At lunch-time she attempted to eat 3 [employer] McNuggets from [employer] which led to severe abdominal pain. This prompted a visit to the ER. By the time of my assessment she was resting comfortably. Principal Diagnosis 1. choledocholithiasis 2. cholangitis 3. gallstones Discharge Exam gen - obese, NAD, pleasant eyes - no icterus mouth - MMM heart - bradycardic, s1 s2, no murmur lungs - CTA b/l abd - soft, NT, ND, BS+, no HSM; abdominal wall incisions clean/intact ext - no edema, pulses 2+b/l skin - no jaundice Discharge Data Allergies Allergy/AdvReac Type Severity Reaction Status Date / Time No Known Allergies Allergy Verified 05/28/21 11:23 Consultations [facility] G[facility] [place] Surgery Procedures Performed Operation Date: 05/22/21 10:00 Actual Procedures Endoscopic Retrograde Cholangiopancreatogram - Bhanu Ayala MD Findings: The bag washer film was normal. The esophagus was successfully intubated under direct vision. The scope was advanced to a normal major papilla in the descending duodenum without detailed examination of the pharynx, larynx and associated structures, and upper GI tract. The upper GI tract was grossly normal. A 0.035 inch straight standard wire was passed into the biliary tree. The Fusion OMNI sphincterotome was passed over the guidewire and the bile duct was then deeply cannulated. Contrast was injected. I personally interpreted the bile duct images. Ductal flow of contrast was adequate. Image quality was adequate. Contrast extended to the main bile duct. Opacification of the entire biliary tree except for the gallbladder was successful. The maximum diameter of the ducts was 9 mm. Biliary sphincterotomy was made with a monofilament traction (standard) sphincterotome using ERBE electrocautery. The sphincterotomy oozed blood. The biliary tree was swept with an 11.5 mm balloon starting at the bifurcation. A few stones were removed. No stones remained. Pus was swept from the duct. One 10 Fr by 8 cm plastic biliary stent with a single external flap and a single internal flap was placed into the common bile duct. Bile flowed through the stent. The stent was in good position. Indomethacin 100 mg was given via suppository to decrease the risk of post-ERCP pancreatitis (PEP). PD was not cannulated. Impression: - Choledocholithiasis was found. Complete removal was accomplished by biliary sphincterotomy and balloon extraction. - One plastic biliary stent was placed into the common bile duct. Operation Date: 05/23/21 15:15 Actual Procedures Laparoscopic Cholecystectomy(Not Applicable) - Harley Bunch, Ordered Studies Gallbladder Ultrasound 05/21/21 13:58 ABDOMINAL ULTRASOUND, RIGHT UPPER QUADRANT HISTORY: epigastric and RUQ pain, n/v, after eating. COMPARISON: Chest CTA 02/09/2019. FINDINGS: Pancreas: The pancreatic tail is obscured by overlying bowel gas. The remaining portions of the pancreas are within normal limits. Liver: No hepatic masses. There is mild intrahepatic bile duct dilatation. Gallbladder: Multiple small stones seen within the gallbladder. The gallbladder is mildly distended. No gallbladder wall thickening or pericholecystic fluid. Possible sonographic Walton's sign. CBD: The common bile duct is distended measuring up to 8 mm. Right kidney: No hydronephrosis. IMPRESSION: 1. Distended gallbladder containing multiple small stones. No gallbladder wall thickening. However, there is a possible sonographic Walton sign. Therefore, clinical correlation recommended to assess for acute cholecystitis. 2. Mild intra and extrahepatic bile duct dilatation. ACT 112: Negative or not required by law. Electronically signed by: Corona Costello M.D. 05/21/2021 4:15 PM Cholangiopancreatography MRI 05/21/21 16:31 MRCP CLINICAL HISTORY: Cholelithiasis. Elevated hepatic transaminases. COMPARISON STUDY: Abdominal ultrasound dated 05/21/2021. Chest CT dated 02/09/2019. TECHNIQUE: Abdominal MRCP is performed utilizing various T2-weighted sequences in the axial and coronal planes. IV contrast was not administered for this examination. 3-D reformats are created and assessed. FINDINGS: There are numerous gallstones identified, including a stone in the gallbladder neck. There is no MRI evidence of acute cholecystitis. The common bile duct is mildly dilated measuring 7.5 mm in diameter. There are intraluminal filling defects in the mid to distal common bile duct which likely represent choledocholithiasis. There is no intrahepatic biliary ductal dilatation. The pancreatic duct is normal in caliber. The liver is mildly enlarged measuring 18.4 cm in length. Steatosis was shown on a prior chest CT. The unenhanced liver is otherwise grossly unremarkable. The unenhanced spleen, pancreas, adrenal glands, and kidneys are grossly normal. There is no abdominal ascites. The abdominal aorta is normal in caliber. No bowel obstruction is seen. There is no pleural effusion. IMPRESSION: 1. Cholelithiasis without MRI evidence of acute cholecystitis. 2. There is mild dilatation of the common bile duct with evidence of choledocho lithiasis. 3. Hepatomegaly and hepatic steatosis. Dictated: 05/22/2021 8:01 AM Transcribed: 05/22/2021 8:25 AM Ary [id number] [email or web address] Electronically signed by: Josué Quesada M.D. 05/22/2021 8:51 AM Endo Retro Cholangiopancreatogram 05/22/21 14:45 [place] ERCP biliary ductal HISTORY: 35 years-old Female EXPLORE DUCTS cholelithiasis with choledocholithia sis COMPARISON: MRCP 05/21/2021 TECHNIQUE: 10 spot fluoroscopic images of the abdominal right upper quadrant were obtained utilizing 26.6 seconds fluoroscopy time FINDINGS: Endoscope is noted within the duodenum. There is cannulation of the common bile duct with retrograde injection of contrast an subsequent balloon sweep of the common bile duct. Opacified cystic duct. Extrahepatic biliary ductal dilation is noted without significant intrahepatic biliary ductal dilation. Subsequent images demonstrate limited of a common bile duct stent which appears to be in satisfactory positioning. Spillage of contrast into the duodenum. IMPRESSION: Status post placement of a common bile duct stent which appears to be in satisfactory positioning. ACT 112: Negative or not required by law. The above report was generated using voice recognition software. It may contain grammatical, syntax or spelling errors. Electronically signed by: Aki Joaquin M.D. 05/22/2021 6:36 PM Hospital Course (1) Choledocholithiasis: Patient presented with severe abdominal pain 2nd to biliary colic. This was associated with nausea, emesis, fatigue, and chills. She underwent MRCP showing evidence of distal CBD stones. She was seen by Cornelius OLIVA, Dr Bhanu Ayala, and underwent ERCP. Gallstones from the CBD were removed, pus was seen and swept from the CBD, and a stent was deployed. She was treated with IV zosyn the entire hospitalization. She never had evidence clinically of post-ERCP pancreatitis. Following her ERCP and lap sanjeev her LFTs improved/down-trended. She will take a course of augmentin x 7 days post-discharge for cholangitis. The stent will need to be removed in 6 weeks post-discharge - Cornelius OLIVA to arrange this. (2) Cholangitis: Seen on ERCP. Treated with IV zosyn while here, followed by a 7-day course of augmentin after discharge. WBC count was normal on cbc while here, and she was hemodynamically stable. (3) Cholelithiasis: Following her ERCP she was seen by [facility] General Surgery. She was taken to the OR by Dr Harley Bunch who performed laparoscopic cholecystectomy without complications. She did not have evidence of acute cholecystitis at time of surgery. Incisions were clean/dry at time of discharge. She will need to see Dr Bunch in the General Surgery clinic post-discharge. (4) Elevated liver enzymes: 2nd to #1, #2. improving before discharge. She will need repeat LFTs at time of hospital follow-up to ensure normalization. She was advised not to drink any alcohol post-discharge while awaiting her LFTs to fully normalize. (5) Morbid obesity with BMI of 40.0-44.9, adult: BMI 41.7 Total Time Total Time Spent Total Time Spent (In Minutes): 35 Discharge Plan Discharge Items Patient Disposition: Home - Self-Care Reason For Visit: BILIARY COLIC, ABNORMAL LFTS Discharge Diagnosis: 1. choledocholithiasis - gallstones in the bile duct - "ERCP" performed, stent placed 2. cholangitis - infection of the bile duct 3. gall bladder disease/gallstones - surgery to remove the gall bladder Condition on Discharge: Good Activity: Per Instructions section Lifting: No more than 10 pounds Bathing Comment: may shower; no soaking in tubs/pools Exercise/Sports: Wait until after follow-up appointment Driving/Machine Use: no driving while taking narcotics for pain Non-emergency contact: Primary Care Provider and Surgeon Call non-emergency contact if: you have any medication questions, your symptoms worsen, your pain is not controlled, your pain is concerning for you, you have a fever, your temperature is above 101, your wound has increased redness, your wound has increased drainage and your wound pain has increased Follow-up/Referrals: Harley Bunch DO [Surgeon] - 06/10/21 10:45 am (Please call to schedule follow up in clinic within 2 weeks) Demetrius Block DO [Primary Care Provider] - 05/30/21 3:40 pm (5-7 days ) Bhanu Ayala MD [Hospitalist] - (6 weeks - bile duct stent removal ) Diet: Regular Addtl Attending Provider Instructions: Mrs Bynum, Deuce were hospitalized for severe abdominal pain. We discovered that you had gallstones, elevated liver function tests, and concerns that your bile duct was blocked with gallstones. An MRI scan of the bile duct indeed confirmed you had gallstones in the bile duct. During your stay you have received IV antibiotics followed by oral antibiotics. Dr Ayala from [facility] did and "ERCP" procedure and cleaned the duct out. He removed gallstones. There was a small amount of pus in the bile duct. This is called "cholangitis." He placed a plastic stent into the duct. This will be removed in about 6 weeks. On 05/23/21 Dr Bunch performed a cholecystectomy (surgery to remove the gall bladder). This went well and without any complications. You were started back on a diet and have tolerated this well. Your liver function tests are nearly normal today. Dr Bunch would like to see you in his office in about 2 weeks after discharge. Recommendations - 1. antibiotics - amoxicillin-clavulanate 875mg twice daily x 7 days, first dose tonight. This antibiotic can cause diarrhea. Thus, please continue your probiotic supplement and eat plenty of yogurt over the next week. 2. pain medication - * for mild pain you can take pzvc-rok-szgoxmd tylenol 1000mg every 6 hours as needed for pain, max 3000mg in 24 hours * if you are having more severe pain you can take hydrocodone-acetaminophen pain killer medication; 1 tab every 6 hours as needed * the hydrocodone can cause constipation * the hydrocodone can also cause you to be sleepy; thus, do not drive or drink alcohol if you are using this medication * further, the hydrocodone does contain tylenol so do not take the pain killer prescription and [id number] tylenol concurrently (just use 1 or the other) * please avoid anti-inflammatory pills (aspirin, motrin, ibuprofen, naprosyn, etc) for 5 days due to your recent stent procedure 3. ok to resume regular diet. Just be careful with high-fat meals - particularly fast foods, fried foods, etc. Follow-up - see separate section Return to [facility] if - * you have fevers over 101 degrees * you have any concerns about your abdominal incisions from the surgery * you are having severe abdominal pain * you are vomiting or having severe diarrhea * you are short of breath * any other concerns It was our pleasure to care for you at [facility]! Best wishes for a a speedy recovery, Dr Mascorro Pending Studies at Discharge: Yes Studies:: surgical pathology Stand-Alone Forms: My [facility], Work/School Release, Smoking Cessation Medications and DC Order Prescriptions: New hydrocodone-acetaminophen 5-325 mg Tablet 1 tab PO Q6H PRN (Reason: pain) Qty: 10 RF: 0 Continued multivitamin Tablet 1 tab PO DAILY RF: 0 Discontinued norgestimate-ethinyl estradiol [Sprintec (28)] 0.25-35 mg-mcg tablet 1 tab PO DAILY Qty: 84 RF: 4 No Action fluconazole [Diflucan] 150 mg tablet 150 mg PO Q3D Qty: 2 RF: 0 nystatin 100,000 unit/mL suspension 500,000 unit PO QID 7 Days Qty: 140 RF: 0 Discharge Orders: Discharge Order (Routine); Ordered 05/24/21 Ordered By: Lyle Mascorro Admission Data Admit Date/Time: 05/21/21 18:21 Attending Provider: Lyle Mascorro Admit Provider: Lyle Mascorro Primary Care Provider: Demetrius Block Other Providers: Bhanu Ayala ; Harley Bunch ; Lyle Mascorro Other Interventions: Discharge Summary Assessment (RN) Last Done: 05/24/21 11:31 Coding Level of Care Code D/C DAY MANAGEMENT >30 MINS Diagnoses Choledocholithiasis K80.50 Cholangitis K83.09 Cholelithiasis K80.21 Biliary obstruction: with biliary obstruction Cholecystitis presence: without cholecystitis Cholelithiasis location: gallbladder Elevated liver enzymes R74.8 Morbid obesity with BMI of 40.0-44.9, adult E66.01; Z68.41
--- NOTE | 2021-05-24 11:56 | Surgery Progress Note ---
Date of Service May 24, 2021 Assessment & Plan (1) Choledocholithiasis: Plan: POD 1 lap sanjeev seen with Dr. Bunch doing well, LFTs improving ok for d/c Admission and Anticipated Discharge Date Admission Date: May 21, 2021 Subjective feels good, tolerating diet Physical Exam Gastrointestinal (Abdomen): Percussion/Palpation: abdomen soft Results & Data ([facility]) Vital Signs (Past 12 Hours) Vital Signs Temp Pulse Pulse Resp BP BP Pulse Ox 05/24/21 11:31 37 C 60 18 120/70 98 05/24/21 11:16 37 C 60 18 120/70 98 05/24/21 07:35 36.6 C 69 18 112/77 98 05/24/21 03:34 36.7 C 74 20 108/70 94 PG Care Time/CCT Total # of Minutes Spent Total Time Spent with Patient: Total time spent is greater than 50% in coordination of care (as documented) at patient's floor/unit and/or counseling patient: Coding Level of Care Code None Diagnoses Choledocholithiasis K80.50
== END 2021-05-24 14:20 | disposition home or self-care (01) | DRG 418 ==
LOC: ED 13:17 → 3E 18:21
DX: K80.50 Calculus of bile duct without cholangitis or cholecystitis without obstruction; K83.09 Other cholangitis; Z68.41 Body mass index [BMI] 40.0-44.9, adult; R74.8 Abnormal levels of other serum enzymes; E66.01 Morbid (severe) obesity due to excess calories